=== PATIENT | female | born 1935 | race Caucasian/White ===

== ENCOUNTER 2017-02-18 11:32 | Emergency (ER) | payer MEDICARE, BC ==
[2017-02-18] MEDS ORDERED: Sodium Chloride 0.9% 1,000 ML IV ONE (13:02)
--- NOTE | 2017-02-18 13:12 | EDM.PDOC ---
ED HPI GENERAL MEDICAL PROBLEM - General Chief Complaint: Abdominal Pain Stated Complaint: UPPER ABDOMINAL PAIN Time Seen by Provider: 02/18/17 12:00 Source of Information: Reports: Patient History Limitations: Reports: No Limitations - History of Present Illness INITIAL COMMENTS - FREE TEXT/NARRATIVE: 81-year-old female who is been having epigastric and abdominal pain for the last couple of months. She seemed to respond to Prilosec but stopped taking it, and despite restarting it a week ago she continues to have discomfort. This morning it was very uncomfortable when she woke up so came in to get an opinion because she is starting to worry she has cancer or something more serious. No fevers or chills, she's had a 10 pound weight loss over the last several months and she's had marked increase in anxiety. No dark stools. Onset: Unknown/Unsure (Symptoms of been waxing and waning for several months) Location: Reports: Abdomen Quality: Reports: Ache, Burning Severity: Moderate Associated Symptoms: Reports: Other (Weight loss) epigastric Pain Score (Numeric/FACES): 5 - Related Data Allergies Allergy/AdvReac Type Severity Reaction Status Date / Time No Known Allergies Allergy Verified 02/18/17 11:51 Home Meds: Home Meds Losartan [Cozaar] 50 mg PO BEDTIME 02/18/17 [History] Omeprazole [Omeprazole] 40 mg PO DAILY 02/18/17 [History] Sertraline HCl [Sertraline HCl] 50 mg PO DAILY 02/18/17 [History] Triamterene/Hydrochlorothiazid [Triamterene-HCTZ 37.5-25 MG] 1 cap PO DAILY [History] Past Medical History HEENT History: Reports: Impaired Vision Cardiovascular History: Reports: Hypertension Gastrointestinal History: Reports: GERD 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: Musculoskeletal History: Reports: Back Pain, Chronic Psychiatric History: Reports: Anxiety, Depression Endocrine/Metabolic History: Reports: Diabetes, Type II Oncologic (Cancer) History: Reports: Basal Cell Carcinoma Dermatologic History: Reports: Other (See Below) Other Dermatologic History: basal cell carcinoma - Infectious Disease History Infectious Disease History: Reports: Chicken Pox, Shingles Social & Family History - Tobacco Use Smoking Status *Q: Never Smoker - Caffeine Use Caffeine Use: Reports: Coffee - Recreational Drug Use Recreational Drug Use: No ED ROS GENERAL - Review of Systems Review Of Systems: See Below Constitutional: Denies: Fever, Chills, Malaise HEENT: Reports: No Symptoms Respiratory: Denies: Shortness of Breath, Cough Cardiovascular: Denies: Chest Pain GI/Abdominal: Reports: Abdominal Pain. Denies: Nausea, Vomiting : Reports: No Symptoms Musculoskeletal: Reports: No Symptoms Skin: Reports: No Symptoms Neurological: Reports: No Symptoms Psychiatric: Reports: Anxiety ED EXAM, GI/ABD - Physical Exam Exam: See Below Exam Limited By: No Limitations General Appearance: Alert, No Apparent Distress Eyes: Bilateral: Normal Appearance (No jaundice) Respiratory/Chest: No Respiratory Distress, Lungs Clear Cardiovascular: Regular Rate, Rhythm GI/Abdominal Exam: Soft, Tender (Patient does have tenderness to palpation in the epigastric area into the left upper quadrant but no guarding) Neurological: Alert, Oriented Psychiatric: Normal Mood, Anxious Skin Exam: Warm, Dry Course - Vital Signs Last Recorded V/S: Last Vital Signs Temp 97.6 F 02/18/17 11:54 Pulse 91 02/18/17 14:19 Resp 18 02/18/17 14:19 BP 212/95 H 02/18/17 14:19 Pulse Ox 96 02/18/17 14:19 - Orders/Labs/Meds Labs: Laboratory Tests 02/18/17 02/18/17 Range/Units 12:28 12:28 WBC 7.3 (4.5-11.0) K/uL RBC 4.80 (3.30-5.50) M/uL Hgb 15.2 H (12.0-15.0) g/dL Hct 43.7 (36.0-48.0) % MCV 91 (80-98) fL MCH 32 H (27-31) pg MCHC 35 (32-36) % Plt Count 304 (150-400) K/uL Neut % (Auto) 55 (36-66) % Lymph % (Auto) 34 (24-44) % [place] % (Auto) 9 H (2-6) % Eos % (Auto) 2 (2-4) % Baso % (Auto) 0 (0-1) % Sodium 140 (140-148) mmol/L Potassium 3.7 (3.6-5.2) mmol/L Chloride 100 (100-108) mmol/L Carbon Dioxide 32 (21-32) mmol/L Anion Gap 8.1 (5.0-14.0) mmol/L BUN 20 H (7-18) mg/dL Creatinine 1.1 H (0.6-1.0) mg/dL Est Cr Clr Drug Dosing 32.62 mL/min Estimated GFR (MDRD) 48 L (>60) Glucose 106 (74-106) mg/dL Calcium 9.2 (8.5-10.1) mg/dL Total Bilirubin 0.3 (0.2-1.0) mg/dL AST 23 (15-37) U/L ALT 41 (12-78) U/L Alkaline Phosphatase 27 L (46-116) U/L Total Protein 8.3 H (6.4-8.2) g/dL Albumin 3.6 (3.4-5.0) g/dL Globulin 4.7 H (2.3-3.5) g/dL Albumin/Globulin Ratio 0.8 L (1.2-2.2) Amylase 94 (25-115) U/L Lipase 232 (73-393) U/L Meds: Medications Discontinued Medications Generic Name Dose Route Start Last Admin Trade Name Freq PRN Reason Stop Dose Admin Al Hydroxide/Mg Hydroxide 15 0 ml 02/18/17 14:48 02/18/17 15:00 ml/ Lidocaine HCl 15 ml PO 02/18/17 14:49 30 ml ONETIME ONE Administration Sodium Chloride 1,000 mls @ 1,000 mls/hr 02/18/17 13:02 02/18/17 13:25 Normal Saline IV 02/18/17 14:01 1,000 mls/hr .BOLUS ONE Administration Sodium Chloride 100 mls @ 3.5 mls/sec 02/18/17 13:30 02/18/17 13:51 Normal Saline IV 02/18/17 13:31 3 mls/sec ASDIRECTED ARTIE Administration Iopamidol 100 ml 02/18/17 13:17 02/18/17 13:50 Isovue-300 (61%) IV 02/19/17 13:18 90 ml . DIRECTED PRN Administration RADIOLOGY EXAM - Re-Assessments/Exams Free Text/Narrative Re-Assessment/Exam: 02/18/17 13:16 A CBC CMP amylase and lipase were obtained. Intentions are to get a CT of the abdomen with IV enhancement. 02/18/17 15:05 Labs were all reassuring. A CT with IV contrast showed a very large gallstone but no surrounding inflammatory changes. There was also some mild thickening of the esophagus but no hiatal hernia. Discussed these findings with the patient and then gave her a GI cocktail to see if symptoms would improve. 02/18/17 15:15 GI cocktail actually provided quite a bit of relief after 10-15 minutes. She is going to continue on her prescription proton pump inhibitor, and discuss a possible EGD in the near future with her primary provider. Departure - Departure Time of Disposition: 15:26 Disposition: Home, Self-Care 01 Condition: Good Clinical Impression: Esophagitis, reflux - Discharge Information Instructions: Gastroesophageal Reflux Disease, Adult Referrals: Zachary Hines MD [Primary Care Provider] - Forms: ED Department Discharge Care Plan Goals: Continue with your antacid medication as prescribed, consider a bland diet for the next few days and increase diet as tolerated. Discuss possibly setting up an EGD with your primary provider in the near future.
[2017-02-18] MEDS ORDERED: Iopamidol 612 MG/ML 100 ML Bottle IV PRN (13:17)
[2017-02-18] MEDS: Sodium Chloride 0.9% 100 ML IV SCH ×2 (13:50→13:51)
[2017-02-18 14:24] VITALS: BP 212/95
--- NOTE | 2017-02-18 14:41 | CT ---
Abdomen Pelvis w Cont INDICATION: persistant epigastric pain, weight loss TECHNIQUE: CT images of the abdomen and pelvis performed. Coronal reformatted images obtained. IV contrast only DLP: 491 mGycm COMPARISON: None FINDINGS: Mild thickening of the esophagus at the GE junction could represent mild esophagitis. No significant hiatal hernia. 2.5 cm gallstone. Smaller gallstones. No gallbladder wall thickening or p ericholecystic induration or fluid. No biliary distention. Pancreas unremarkable. Liver and spleen un remarkable. Adrenal glands clear. No renal calculi or hydronephrosis. Tiny cyst lower pole right kidn ey. Ureters and urinary bladder are clear. No signs of bowel obstruction. Appendix not visualized but no CT signs of acute appendicitis. Abdominal aorta normal caliber. No adenopathy. No ascites or free air. IMPRESSION: 1. Cholelithiasis with a large 2.5 cm gallstone but no CT signs of acute cholecystitis. 2. Correlate for esophagitis. Discussed with Dr. Tony Courtney immediately following the study.
[2017-02-18] MEDS ORDERED: Alum Hydrox/Mag Hydrox/Simeth 15 ML, Lidocaine 2% 15 ML PO ONE ×2 (14:48)
== END 2017-02-18 15:23 | disposition home or self-care (01) ==
LOC: JP.ED 11:32
DX: K21.0 Gastro-esophageal reflux disease with esophagitis (principal); I10 Essential (primary) hypertension; E11.9 Type 2 diabetes mellitus without complications; Z85.828 Personal history of other malignant neoplasm of skin; Z79.899 Other long term (current) drug therapy
CPT/HCPCS: 36415; 74177; 80053; 82150; 83690; 85025; 96360; 99284; A9270; J7030; J7040; Q9967; 99283

== ENCOUNTER 2020-06-14 08:25 | Inpatient (IN) | payer MEDICARE, BC ==
[2020-06-14] MEDS ORDERED: Acetaminophen 325 MG Tab PO PRN ×2 (14:23)
[2020-06-14] MEDS ORDERED: Docusate Sodium 100 MG Cap PO PRN (14:23)
[2020-06-14] MEDS ORDERED: Ondansetron 4 MG/2 ML SDV IV PRN (14:23)
[2020-06-14] MEDS ORDERED: Ondansetron 4 MG Tab.DIS PO PRN (14:23)
[2020-06-14] MEDS ORDERED: Albuterol/Ipratropium 3.0-0.5 MG/3 ML Neb Soln NEB PRN (14:23)
--- NOTE | 2020-06-14 15:47 | PCM.HP.2 ---
H&P History of Present Illness - General Date of Service: 06/14/20 Admit Problem/Dx: Admission Diagnosis/Problem Admission Diagnosis/Problem Weakness Source of Information: Patient History Limitations: Reports: No Limitations - History of Present Illness Initial Comments - Free Text/Narative: Ms. Maddison Jimenez is an 84 yo F admitted to the Medicine service at [facility] from clinic. She is admitted on 06/14/2020 for fever, hypoxia, and lethargy/malaise in the setting of a positive COVID 19 status. The patient was noted, in clinic, to have a presentation SpO2 of 87% on RA. This rebounded quickly to the mid 90's with starting 2 L NC oxygen. Despite this rapid improvement the ambulatory team was concerned enough to request admission to Medicine. The patient, upon arrival, was noted to be sitting at about 93% on RA. She was afebrile. She reported to the RN fevers at home of 101-103F. She has otherwise remained clinically stable since arriving to the unit. 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) - Related Data Allergies/Adverse Reactions: Allergies Allergy/AdvReac Type Severity Reaction Status Date / Time No Known Allergies Allergy Verified 02/18/17 11:51 Home Medications: Home Meds Losartan [Cozaar] 50 mg PO BEDTIME 02/18/17 [History] Omeprazole 40 mg PO DAILY 02/18/17 [History] Sertraline HCl 50 mg PO DAILY 02/18/17 [History] Triamterene/Hydrochlorothiazid [Triamterene-HCTZ 37.5-25 MG] 1 cap PO DAILY 02/18/17 [History] Past Medical History - Past Health History Medical/Surgical History: Denies Medical/Surgical History HEENT History: Reports: Impaired Vision Cardiovascular History: Reports: Heart Murmur, Hypertension Respiratory History: Reports: Other (See Below) Other Respiratory History: positive covid 19 Gastrointestinal History: Reports: GERD Other Gastrointestinal History: 06/13/20 - last BM [employer]ER History: Reports: Musculoskeletal History: Reports: Back Pain, Chronic Psychiatric History: Reports: Anxiety, Depression Endocrine/Metabolic History: Reports: Diabetes, Type II Oncologic (Cancer) History: Reports: Basal Cell Carcinoma Dermatologic History: Reports: Other (See Below) Other Dermatologic History: basal cell carcinoma - Infectious Disease History Infectious Disease History: Reports: Chicken Pox, Shingles - Past Surgical History Respiratory Surgical History: Reports: None Social & Family History - Family History Family Medical History: No Pertinent Family History - Tobacco Use Tobacco Use Status *Q: Never Tobacco User - Caffeine Use Caffeine Use: Reports: Coffee - Recreational Drug Use Recreational Drug Use: No H&P Review of Systems - Review of Systems: Review Of Systems: Comprehensive ROS is negative, except as noted in HPI. Exam - Exam Exam: See Below - Vital Signs Vital Signs: Last Vital Signs Temp 97.3 F 06/14/20 14:38 Pulse 52 L 06/14/20 14:38 Resp 16 06/14/20 14:38 BP 155/50 H 06/14/20 14:38 Pulse Ox 93 L 06/14/20 14:38 Weight: 139 lb 5.314 oz - Exam Quality Assessment: Supplemental Oxygen, DVT Prophylaxis General: Alert, Oriented, Cooperative. No: Mild Distress HEENT: PERRLA, EOMI Neck: Supple, Trachea Midline Lungs: Normal Respiratory Effort, Crackles (Bilateral in the bases) Cardiovascular: Regular Rate, Regular Rhythm, Normal S1, Normal S2, Systolic Murmur. No: Irregular Rhythm, Bradycardia, Tachycardia, Diastolic Murmur GI/Abdominal Exam: Normal Bowel Sounds, Soft, Non-Tender, No Organomegaly, No Distention Extremities: Normal Inspection, Normal Range of Motion, Non-Tender, No Pedal Edema, Normal Capillary Refill Peripheral Pulses: 4+: Posterior Tibial (L), Posterior Tibial (R), Dorsalis Pedis (L), Dorsalis Pedis (R) Skin: Warm, Dry, Intact Neurological: Cranial Nerves Intact, Reflexes Equal Bilateral Neuro Extensive - Mental Status: Alert, Oriented x3, Normal Mood/Affect, Normal Cognition, Memory Intact Neuro Extensive - Motor, Sensory, Reflexes: Normal Reflexes. No: Motor/Sensory Deficits DTR: 2+: Patella (L), Patella (R) Psychiatric: Alert, Normal Affect, Normal Mood. No: Labile Mood, Anxious, Depressed, Agitated, Suicidal Ideation, Homicidal Ideation Sepsis Event Note - Focused Exam Vital Signs: Vital Signs Temp Pulse Resp BP Pulse Ox 06/14/20 14:38 97.3 F 52 L 16 155/50 H 93 L Problem List Initiated/Reviewed/Updated: Yes Orders Last 24hrs: Active Orders 24 hr Category Date Time Status Patient Status [ADT] Routine ADT 06/14/20 14:23 Active Ambulate [RC] QID Care 06/14/20 14:23 Active Height and Weight [RC] DAILY Care 06/14/20 14:23 Active Intake and Output [RC] QSHIFT Care 06/14/20 14:30 Active Nurse Communication: Isolation [RC] ASDIRECTED Care 06/14/20 14:24 Active Oxygen Therapy [RC] PRN Care 06/14/20 14:23 Active Positioning, Patient [RC] ASDIRECTED Care 06/14/20 14:24 Active Pulse Oximetry [RC] CONTINUOUS Care 06/14/20 14:31 Active RT Aerosol Therapy [RC] ASDIRECTED Care 06/14/20 14:32 Active RT Incentive Spirometry [RC] ASDIRECTED Care 06/14/20 14:23 Active Up to Chair [RC] QID Care 06/14/20 14:23 Active VTE/DVT Education [RC] Per Unit Routine Care 06/14/20 14:23 Active Vital Signs [RC] Q4H Care 06/14/20 14:23 Active Consult to Case Management/Plastics Seasoner Operator [CONS] Cons 06/14/20 14:23 Active Routine Regular Diet [DIET] Diet 06/14/20 Dinner Active BASIC METABOLIC PANEL,BMP [CHEM] DAILY Lab 06/15/20 14:23 Ordered BASIC METABOLIC PANEL,BMP [CHEM] DAILY Lab 06/16/20 14:23 Ordered BASIC METABOLIC PANEL,BMP [CHEM] DAILY Lab 06/17/20 14:23 Ordered C-REACTIVE PROTEIN [CHEM] DAILY Lab 06/15/20 14:23 Ordered C-REACTIVE PROTEIN [CHEM] DAILY Lab 06/16/20 14:23 Ordered C-REACTIVE PROTEIN [CHEM] DAILY Lab 06/17/20 14:23 Ordered CBC WITH AUTO DIFF [HEME] DAILY Lab 06/15/20 14:23 Ordered CBC WITH AUTO DIFF [HEME] DAILY Lab 06/16/20 14:23 Ordered CBC WITH AUTO DIFF [HEME] DAILY Lab 06/17/20 14:23 Ordered CULTURE BLOOD [BC] Stat Lab 06/14/20 14:50 Received CULTURE RESPIRATORY + SMEAR [RM] Routine Lab 06/14/20 14:25 Ordered D-DIMER QUANTITATIVE [COAG] Stat Lab 06/14/20 14:50 Received FERRITIN [CHEM] DAILY Lab 06/15/20 14:23 Ordered FERRITIN [CHEM] DAILY Lab 06/16/20 14:23 Ordered FERRITIN [CHEM] DAILY Lab 06/17/20 14:23 Ordered HEPATIC FUNCTION PANEL,HFP [CHEM] DAILY Lab 06/15/20 14:30 Ordered HEPATIC FUNCTION PANEL,HFP [CHEM] DAILY Lab 06/16/20 14:30 Ordered HEPATIC FUNCTION PANEL,HFP [CHEM] DAILY Lab 06/17/20 14:30 Ordered HEPATIC FUNCTION PANEL,HFP [CHEM] DAILY Lab 06/18/20 14:30 Ordered HEPATIC FUNCTION PANEL,HFP [CHEM] Stat Lab 06/14/20 14:50 Received INFLUENZA A+B AG SCREEN [RM] Stat Lab 06/14/20 14:23 Ordered INR,PT,PROTHROMBIN TIME [COAG] Routine Lab 06/14/20 14:50 Received LACTATE DEHYDROGENASE,LDH [CHEM] Stat Lab 06/14/20 14:50 Received LACTIC ACID [CHEM] Stat Lab 06/14/20 14:50 Received PROCALCITONIN [CHEM] DAILY Lab 06/15/20 14:23 Ordered PROCALCITONIN [CHEM] DAILY Lab 06/16/20 14:23 Ordered PROCALCITONIN [CHEM] DAILY Lab 06/17/20 14:23 Ordered STREP SCRN A RAPID W CULT CONF [RM] Routine Lab 06/14/20 14:23 Ordered Acetaminophen [TylenoL] Med 06/14/20 14:23 Active 650 mg PO Q4H PRN Acetaminophen [TylenoL] Med 06/14/20 14:23 Active 650 mg PO Q4H PRN Albuterol/Ipratropium [DuoNeb 3.0-0.5 MG/3 ML] Med 06/14/20 14:23 Active 3 ml NEB QID PRN Docusate Sodium [Colace] Med 06/14/20 14:23 Active 100 mg PO BID PRN HCTZ/Triamterene [Maxzide 25-37.5 MG] Med 06/15/20 09:00 Active 1 each PO DAILY Heparin Sodium Med 06/14/20 16:00 Active 5,000 units SUBCUT Q8H Losartan [Cozaar] Med 06/14/20 21:00 Active 50 mg PO BEDTIME Ondansetron [Zofran ODT] Med 06/14/20 14:23 Active 4 mg PO Q6H PRN Ondansetron [Zofran] Med 06/14/20 14:23 Active 4 mg IV Q6H PRN Pantoprazole [ProTONIX] Med 06/15/20 07:30 Active 40 mg PO ACBREAKFAST Remdesivir 100 mg Med 06/15/20 14:00 Active Sodium Chloride 0.9% [Normal Saline] 100 ml IV Q24H Remdesivir 200 mg Med 06/14/20 16:00 Active Sodium Chloride 0.9% [Normal Saline] 250 ml IV ONETIME Sertraline [Zoloft] Med 06/15/20 09:00 Active 50 mg PO DAILY dexAMETHasone [Decadron] Med 06/14/20 15:00 Active 6 mg IVPUSH DAILY Isolation [COMM] Routine Oth 06/14/20 14:28 Ordered Isolation [COMM] Stat Oth 06/14/20 14:23 Ordered RT Acapella [RESPCARE] Routine Oth 06/14/20 14:23 Active Medication Orders Acetaminophen (Tylenol) 650 mg PO Q4H PRN PRN Reason: Fever Greater Than 101 Acetaminophen (Tylenol) 650 mg PO Q4H PRN PRN Reason: Pain (Mild 1-3)/fever Albuterol/Ipratropium (Duoneb 3.0-0.5 Mg/3 Ml) 3 ml NEB QID PRN PRN Reason: Shortness Of Breath/wheezing Dexamethasone (Decadron) 6 mg IVPUSH DAILY [facility] Stop: 06/23/20 09:01 Docusate Sodium (Colace) 100 mg PO BID PRN PRN Reason: Constipation Heparin Sodium (Porcine) (Heparin Sodium) 5,000 units SUBCUT Q8H [facility] Remdesivir 200 mg/ Sodium (Chloride) 250 mls @ 250 mls/hr IV ONETIME ONE Stop: 06/14/20 16:59 Remdesivir 100 mg/ Sodium (Chloride) 100 mls @ 100 mls/hr IV Q24H [facility] Stop: 06/18/20 14:59 Losartan Potassium (Cozaar) 50 mg PO BEDTIME [facility] Ondansetron HCl (Zofran Odt) 4 mg PO Q6H PRN PRN Reason: Nausea able to take PO Ondansetron HCl (Zofran) 4 mg IV Q6H PRN PRN Reason: Nausea/Vomiting Pantoprazole Sodium (Protonix) 40 mg PO ACBREAKFAST ARTIE Sertraline HCl (Zoloft) 50 mg PO DAILY ARTIE Triamterene/Hydrochlorothiazide (Maxzide 25-37.5 Mg) 1 each PO DAILY ARTIE Assessment/Plan Comment:: HEENT No active issues at present No trauma Cardiovascular Patient stable, no prior CV disease Respiratory Patient positive with COVID 19 and has clinical symptoms of bilateral PNA XR was not showing this on initial pass but it is clearly noted on examination. Patient is presently afebrile and stable. She is not requiring supplemental oxygen presently. There is some question of whether this patient could have potentially gotten monoclonal antibody treatment in the field in lieu of admission to the hospital as her clinical status is generally fairly stable. By the time we were able to consider this the patient had already arrived for management. - Start remdesivir - 200 mg IV loading dose today - 100 mg IV q day x 4 days starting on 06/15 - Start dexamethasone 6 mg IV q day starting today - SUpplemental oxygen as needed to keep SpO2 between 90-96% - Close observation of clinical status - Patient is FULL CODE and consents to intubation if needed - Routine surveillance and labs for secondary CAP Gastrointestinal - No issues, TRIAL JUDGE meds (omeprazole) Infectious Disease - As above Endocrine Diet controlled Type II DM - Resume carbohydrate controlled diet - Daily glucose - Given starting dexamethasone may need to add SSI, Glucose monitoring Renal/Fluids/Electrolytes No issues Replace lytes as needed Neuromusculoskeletal Consider PT/OT if needed DVT PPX: Heparin Disposition: Anticipate D/C to home CODE STATUS: FULL CODE - Mortality Measure Prognosis:: Good
[2020-06-14] MEDS ORDERED: REMDESIVIR 200 MG in Sodium Chloride 0.9% 250 ML IV ONE (16:00)
[2020-06-14] MEDS: Heparin Sodium 5,000 Units/ML Vial SUBCUT SCH ×2 (16:51→23:35)
[2020-06-14] MEDS: Dexamethasone 4 MG/ML SDV IVPUSH SCH (17:51)
[2020-06-14] MEDS: LOSARTAN 100 MG PO SCH (20:15)
[2020-06-14] MEDS ORDERED: Losartan 50 MG Tab PO SCH (21:00)
[2020-06-15] MEDS ORDERED: Sertraline 50 MG Tab PO SCH (09:00)
[2020-06-15] MEDS: Pantoprazole 40 MG Tab.CR PO SCH (09:09)
[2020-06-15] MEDS: Dexamethasone 4 MG/ML SDV IVPUSH SCH (09:10)
[2020-06-15] MEDS: Heparin Sodium 5,000 Units/ML Vial SUBCUT SCH ×3 (09:10→23:21)
[2020-06-15] MEDS: HYDROCHLOROTHIAZIDE PO SCH (09:11)
[2020-06-15] MEDS: TRIAMTERENE PO SCH (09:11)
[2020-06-15] MEDS: AMLODIPINE 10 MG PO SCH (09:12)
--- NOTE | 2020-06-15 12:57 | PCM.PN ---
- General Info Date of Service: 06/15/20 Admission Dx/Problem (Free Text): Admission Diagnosis/Problem Admission Diagnosis/Problem Weakness Subjective Update: Patient is now on 2 L NC oxygen. Tolerating remdesivir and dexamethasone well. Doing well but is a little apprehensive about her diagnosis. Functional Status: Reports: Pain Controlled, Tolerating Diet - Review of Systems General: Reports: No Symptoms HEENT: Reports: No Symptoms Pulmonary: Reports: Shortness of Breath, Cough Cardiovascular: Reports: No Symptoms Gastrointestinal: Reports: No Symptoms Musculoskeletal: Reports: No Symptoms - Patient Data Vitals - Most Recent: Last Vital Signs Temp 97.7 F 06/15/20 11:47 Pulse 62 06/15/20 11:47 Resp 14 06/15/20 11:47 BP 127/58 L 06/15/20 11:47 Pulse Ox 94 L 06/15/20 11:47 Weight - Most Recent: 140 lb 14.006 oz I&O - Last 24 Hours: Intake & Output 06/14/20 06/15/20 06/15/20 22:59 06:59 14:59 Intake Total 490 Balance 490 Lab Results Last 24 Hours: Laboratory Results - last 24 hr 06/14/20 06/14/20 06/14/20 Range/Units 14:50 14:50 14:50 WBC (4.5-11.0) K/uL RBC (3.30-5.50) M/uL Hgb (12.0-15.0) g/dL Hct (36.0-48.0) % MCV (80-98) fL MCH (27-31) pg MCHC (32-36) % Plt Count (150-400) K/uL Neut % (Auto) (36-66) % Lymph % (Auto) (24-44) % Gosper % (Auto) (2-6) % Eos % (Auto) (2-4) % Baso % (Auto) (0-1) % PT (9.5-12.0) sec INR (0.80-1.20) D-Dimer, Quantitative 1305.21 H (0.0-500.0) ng/mL Sodium (140-148) mmol/L Potassium (3.6-5.2) mmol/L Chloride (100-108) mmol/L Carbon Dioxide (21-32) mmol/L Anion Gap (5.0-14.0) mmol/L BUN (7-18) mg/dL Creatinine (0.6-1.0) mg/dL Est Cr Clr Drug Dosing mL/min Estimated GFR (MDRD) (>60) Glucose (74-106) mg/dL Lactic Acid 1.2 (0.4-2.0) mmol/L Calcium (8.5-10.1) mg/dL Ferritin (8-388) ng/ml Total Bilirubin (0.2-1.0) mg/dL Direct Bilirubin (0.0-0.2) mg/dL Indirect Bilirubin AST (15-37) U/L ALT (12-78) U/L Alkaline Phosphatase (46-116) U/L Lactate Dehydrogenase 381 H (82-234) U/L C-Reactive Protein (0.0-0.3) mg/dL Total Protein (6.4-8.2) g/dL Albumin (3.4-5.0) g/dL Globulin (2.3-3.5) g/dL Albumin/Globulin Ratio (1.2-2.2) Procalcitonin ng/mL 06/14/20 06/14/20 06/15/20 Range/Units 14:50 14:50 05:56 WBC (4.5-11.0) K/uL RBC (3.30-5.50) M/uL Hgb (12.0-15.0) g/dL Hct (36.0-48.0) % MCV (80-98) fL MCH (27-31) pg MCHC (32-36) % Plt Count (150-400) K/uL Neut % (Auto) (36-66) % Lymph % (Auto) (24-44) % Gosper % (Auto) (2-6) % Eos % (Auto) (2-4) % Baso % (Auto) (0-1) % PT 10.7 (9.5-12.0) sec INR 0.98 (0.80-1.20) D-Dimer, Quantitative (0.0-500.0) ng/mL Sodium 135 L (140-148) mmol/L Potassium 4.4 (3.6-5.2) mmol/L Chloride 100 (100-108) mmol/L Carbon Dioxide 24 (21-32) mmol/L Anion Gap 15.4 H (5.0-14.0) mmol/L BUN 41 H D (7-18) mg/dL Creatinine 1.2 H (0.6-1.0) mg/dL Est Cr Clr Drug Dosing 28.35 mL/min Estimated GFR (MDRD) 43 L (>60) Glucose 118 H (74-106) mg/dL Lactic Acid (0.4-2.0) mmol/L Calcium 8.9 (8.5-10.1) mg/dL Ferritin 638 H (8-388) ng/ml Total Bilirubin 0.3 (0.2-1.0) mg/dL Direct Bilirubin 0.13 (0.0-0.2) mg/dL Indirect Bilirubin 0.17 AST 50 H D (15-37) U/L ALT 45 (12-78) U/L Alkaline Phosphatase 28 L (46-116) U/L Lactate Dehydrogenase (82-234) U/L C-Reactive Protein 6.51 H (0.0-0.3) mg/dL Total Protein 7.9 (6.4-8.2) g/dL Albumin 3.2 L (3.4-5.0) g/dL Globulin 4.7 H (2.3-3.5) g/dL Albumin/Globulin Ratio 0.7 L (1.2-2.2) Procalcitonin ng/mL 06/15/20 06/15/20 06/15/20 Range/Units 05:56 05:56 05:56 WBC 3.1 L (4.5-11.0) K/uL RBC 3.98 (3.30-5.50) M/uL Hgb 12.8 D (12.0-15.0) g/dL Hct 37.4 (36.0-48.0) % MCV 94 (80-98) fL MCH 32 H (27-31) pg MCHC 34 (32-36) % Plt Count 296 (150-400) K/uL Neut % (Auto) 57 (36-66) % Lymph % (Auto) 31 (24-44) % Gosper % (Auto) 12 H (2-6) % Eos % (Auto) 0 L (2-4) % Baso % (Auto) 0 (0-1) % PT (9.5-12.0) sec INR (0.80-1.20) D-Dimer, Quantitative (0.0-500.0) ng/mL Sodium (140-148) mmol/L Potassium (3.6-5.2) mmol/L Chloride (100-108) mmol/L Carbon Dioxide (21-32) mmol/L Anion Gap (5.0-14.0) mmol/L BUN (7-18) mg/dL Creatinine (0.6-1.0) mg/dL Est Cr Clr Drug Dosing mL/min Estimated GFR (MDRD) (>60) Glucose (74-106) mg/dL Lactic Acid (0.4-2.0) mmol/L Calcium (8.5-10.1) mg/dL Ferritin (8-388) ng/ml Total Bilirubin 0.3 (0.2-1.0) mg/dL Direct Bilirubin 0.08 (0.0-0.2) mg/dL Indirect Bilirubin TNP AST 41 H (15-37) U/L ALT 37 (12-78) U/L Alkaline Phosphatase 24 L (46-116) U/L Lactate Dehydrogenase (82-234) U/L C-Reactive Protein (0.0-0.3) mg/dL Total Protein 7.0 (6.4-8.2) g/dL Albumin 2.7 L (3.4-5.0) g/dL Globulin 4.3 H (2.3-3.5) g/dL Albumin/Globulin Ratio 0.6 L (1.2-2.2) Procalcitonin 0.15 ng/mL Al[facility]za Results Last 24 Hours: Microbiology 06/14/20 20:30 Influenza Type A Antigen Screen - Final Nasopharyngeal Swab - Nare, Unspecified NEGATIVE INFLUENZA A VIRUS AG REFERENCE RANGE: NEGATIVE Influenza Type B Antigen Screen - Final NEGATIVE INFLUENZA B VIRUS AG REFERENCE RANGE: NEGATIVE 06/14/20 14:23 Group A Streptococcus Rapid Screen - Final Throat NEGATIVE STREP A SCREEN REFERENCE RANGE: NEGATIVE Med Orders - Current: Current Medications Acetaminophen (Tylenol) 650 mg PO Q4H PRN PRN Reason: Fever Greater Than 101 Acetaminophen (Tylenol) 650 mg PO Q4H PRN PRN Reason: Pain (Mild 1-3)/fever Albuterol/Ipratropium (Duoneb 3.0-0.5 Mg/3 Ml) 3 ml NEB QID PRN PRN Reason: Shortness Of Breath/wheezing Dexamethasone (Decadron) 6 mg IVPUSH DAILY [facility] Stop: 06/23/20 09:01 Last Admin: 06/15/20 09:10 Dose: 6 mg Documented by: Docusate Sodium (Colace) 100 mg PO BID PRN PRN Reason: Constipation Heparin Sodium (Porcine) (Heparin Sodium) 5,000 units SUBCUT Q8H [facility] Last Admin: 06/15/20 09:10 Dose: Not Given Documented by: Remdesivir 100 mg/ Sodium (Chloride) 100 mls @ 100 mls/hr IV Q24H [facility] Stop: 06/18/20 14:59 Ondansetron HCl (Zofran Odt) 4 mg PO Q6H PRN PRN Reason: Nausea able to take PO Ondansetron HCl (Zofran) 4 mg IV Q6H PRN PRN Reason: Nausea/Vomiting Pantoprazole Sodium (Protonix) 40 mg PO ACBREAKFAST [facility] Last Admin: 06/15/20 09:09 Dose: 40 mg Documented by: Losartan 100mg *Pom* 1 each PO BEDTIME [facility] Last Admin: 06/14/20 20:15 Dose: 1 each Documented by: Amlodipine 10mg *Pom (*) 1 each PO DAILY [facility] Last Admin: 06/15/20 09:12 Dose: 1 each Documented by: Triamterene/Hydrochlorothiazide (Maxzide 25-37.5 Mg) 1 each PO DAILY [facility] Last Admin: 06/15/20 09:11 Dose: 1 each Documented by: Discontinued Medications Remdesivir 200 mg/ Sodium (Chloride) 250 mls @ 250 mls/hr IV ONETIME ONE Stop: 06/14/20 16:59 Last Admin: 06/14/20 17:46 Dose: 250 mls/hr Documented by: Losartan Potassium (Cozaar) 50 mg PO BEDTIME [facility] Sertraline HCl (Zoloft) 50 mg PO DAILY [facility] - Exam Quality Assessment: Supplemental Oxygen, DVT Prophylaxis General: Alert, Oriented, Cooperative, No Acute Distress HEENT: Pupils Equal, EOMI Lungs: Crackles (bilateral bases, slight climb up into the upper bases) Cardiovascular: Regular Rate, Regular Rhythm Sepsis Event Note - Evaluation Sepsis Screening Result: No Definite Risk - Focused Exam Vital Signs: Vital Signs Temp Pulse Resp BP Pulse Ox 06/15/20 11:47 97.7 F 62 14 127/58 L 94 L 06/15/20 07:56 97.0 F 66 18 112/51 L 95 06/15/20 07:44 95 06/15/20 03:03 92 L 06/15/20 03:02 97.1 F 60 16 122/50 L 87 L 06/15/20 01:50 92 L - Problem List Review Problem List Initiated/Reviewed/Updated: Yes - My Orders Last 24 Hours: My Active Orders 06/14/20 14:23 Patient Status [ADT] Routine Ambulate [RC] QID Height and Weight [RC] DAILY Oxygen Therapy [RC] PRN RT Incentive Spirometry [RC] ASDIRECTED Up to Chair [RC] QID VTE/DVT Education [RC] Per Unit Routine Vital Signs [RC] Q4H Consult to Case Management/Telephone Order Clerk [CONS] Routine CULTURE STREP A CONFIRMATION [RM] Routine STREP SCRN A RAPID W CULT CONF [RM] Routine Acetaminophen [TylenoL] 650 mg PO Q4H PRN Acetaminophen [TylenoL] 650 mg PO Q4H PRN Albuterol/Ipratropium [DuoNeb 3.0-0.5 MG/3 ML] 3 ml NEB QID PRN Docusate Sodium [Colace] 100 mg PO BID PRN Ondansetron [Zofran ODT] 4 mg PO Q6H PRN Ondansetron [Zofran] 4 mg IV Q6H PRN Isolation [COMM] Stat RT Acapella [RESPCARE] Routine 06/14/20 14:24 Positioning, Patient [RC] ASDIRECTED 06/14/20 14:25 CULTURE RESPIRATORY + SMEAR [RM] Routine 06/14/20 14:28 Isolation [COMM] Routine 06/14/20 14:30 Intake and Output [RC] QSHIFT 06/14/20 14:31 Pulse Oximetry [RC] CONTINUOUS 06/14/20 14:32 RT Aerosol Therapy [RC] ASDIRECTED 06/14/20 14:50 CULTURE BLOOD [BC] Stat 06/14/20 15:00 CULTURE BLOOD [BC] Routine dexAMETHasone [Decadron] 6 mg IVPUSH DAILY 06/14/20 16:00 Heparin Sodium 5,000 units SUBCUT Q8H 06/14/20 Dinner Consistent Carbohydrate Diet [DIET] 06/14/20 21:00 Patient's Own Medication [Ptom] 1 each PO BEDTIME 06/15/20 01:03 Code Status [Resuscitation Status] Routine 06/15/20 07:30 Pantoprazole [ProTONIX] 40 mg PO ACBREAKFAST 06/15/20 09:00 HCTZ/Triamterene [Maxzide 25-37.5 MG] 1 each PO DAILY Patient's Own Medication [Ptom] 1 each PO DAILY 06/15/20 14:00 Remdesivir 100 mg Sodium Chloride 0.9% [Normal Saline] 100 ml IV Q24H 06/16/20 05:11 BASIC METABOLIC PANEL,BMP [CHEM] DAILY C-REACTIVE PROTEIN [CHEM] DAILY CBC WITH AUTO DIFF [HEME] DAILY FERRITIN [CHEM] DAILY PROCALCITONIN [CHEM] DAILY 06/16/20 23:54 HEPATIC FUNCTION PANEL,HFP [CHEM] DAILY 06/17/20 05:11 BASIC METABOLIC PANEL,BMP [CHEM] DAILY C-REACTIVE PROTEIN [CHEM] DAILY CBC WITH AUTO DIFF [HEME] DAILY FERRITIN [CHEM] DAILY PROCALCITONIN [CHEM] DAILY 06/17/20 23:54 HEPATIC FUNCTION PANEL,HFP [CHEM] DAILY - Plan Plan:: HEENT No active issues at present No trauma Cardiovascular Patient stable, no prior CV disease Respiratory Patient positive with COVID 19 and has clinical symptoms of bilateral PNA XR was not showing this on initial pass but it is clearly noted on examination. Patient is presently afebrile and stable. She is not requiring supplemental oxygen presently. There is some question of whether this patient could have potentially gotten monoclonal antibody treatment in the field in lieu of admission to the hospital as her clinical status is generally fairly stable. By the time we were able to consider this the patient had already arrived for management. - Continue remdesivir - 200 mg IV loading dose today - 100 mg IV q day x 4 days starting on 06/15 - Continue dexamethasone 6 mg IV q day starting today - SUpplemental oxygen as needed to keep SpO2 between 90-96% - Now on 2 L as of 06/15 - Close observation of clinical status - Patient is FULL CODE and consents to intubation if needed - Routine surveillance and labs for secondary CAP Gastrointestinal - No issues, [employer] meds (omeprazole) Infectious Disease - As above Endocrine Diet controlled Type II DM - Resume carbohydrate controlled diet - Daily glucose - Given starting dexamethasone may need to add SSI, Glucose monitoring Renal/Fluids/Electrolytes No issues Replace lytes as needed Neuromusculoskeletal Consider PT/OT if needed DVT PPX: Heparin Disposition: Anticipate D/C to home CODE STATUS: FULL CODE
[2020-06-15] MEDS: REMDESIVIR 100 MG in Sodium Chloride 0.9% 100 ML IV SCH (14:57)
[2020-06-15] MEDS: LOSARTAN 100 MG PO SCH (20:14)
[2020-06-16] MEDS: Pantoprazole 40 MG Tab.CR PO SCH (08:28)
[2020-06-16] MEDS: Heparin Sodium 5,000 Units/ML Vial SUBCUT SCH (08:28)
[2020-06-16] MEDS: Dexamethasone 4 MG/ML SDV IVPUSH SCH (08:28)
[2020-06-16] MEDS: TRIAMTERENE PO SCH (08:29)
[2020-06-16] MEDS: AMLODIPINE 10 MG PO SCH (08:29)
[2020-06-16] MEDS: HYDROCHLOROTHIAZIDE PO SCH (08:29)
--- NOTE | 2020-06-16 12:28 | PCM.PN ---
- General Info Date of Service: 06/16/20 Subjective Update: There were no acute events overnight. Patient does continue to require 2 L of supplemental oxygen. She does not feel short of breath. Only has an occasional cough. No fevers. She does feel very weak and feels fatigued. She is able to walk to the bathroom and back. Appetite has been okay. CRP is a little better today. Tolerating treatment with steroids and remdesivir. Functional Status: Reports: Pain Controlled, Tolerating Diet - Review of Systems General: Reports: Weakness. Denies: Fever Pulmonary: Denies: Shortness of Breath - Patient Data Vitals - Most Recent: Last Vital Signs Temp 35.8 C L 06/16/20 11:13 Pulse 63 06/16/20 11:13 Resp 16 06/16/20 11:13 BP 134/61 06/16/20 11:13 Pulse Ox 92 L 06/16/20 11:13 Weight - Most Recent: 64.1 kg I&O - Last 24 Hours: Intake & Output 06/15/20 06/16/20 06/16/20 22:59 06:59 14:59 Intake Total 1480 350 Balance 1480 350 Lab Results Last 24 Hours: Laboratory Results - last 24 hr 06/16/20 06/16/20 06/16/20 Range/Units 06:12 06:12 06:12 WBC 6.4 (4.5-11.0) K/uL RBC 3.98 (3.30-5.50) M/uL Hgb 12.7 (12.0-15.0) g/dL Hct 37.6 (36.0-48.0) % MCV 95 (80-98) fL MCH 32 H (27-31) pg MCHC 34 (32-36) % Plt Count 328 (150-400) K/uL Neut % (Auto) 62 (36-66) % Lymph % (Auto) 26 (24-44) % Smith % (Auto) 11 H (2-6) % Eos % (Auto) 0 L (2-4) % Baso % (Auto) 1 (0-1) % Sodium 136 L (140-148) mmol/L Potassium 4.6 (3.6-5.2) mmol/L Chloride 103 (100-108) mmol/L Carbon Dioxide 24 (21-32) mmol/L Anion Gap 13.6 (5.0-14.0) mmol/L BUN 51 H (7-18) mg/dL Creatinine 1.2 H (0.6-1.0) mg/dL Est Cr Clr Drug Dosing 28.35 mL/min Estimated GFR (MDRD) 43 L (>60) Glucose 145 H (74-106) mg/dL Calcium 8.8 (8.5-10.1) mg/dL Ferritin 800 H (8-388) ng/ml Total Bilirubin 0.3 (0.2-1.0) mg/dL Direct Bilirubin 0.09 (0.0-0.2) mg/dL Indirect Bilirubin TNP AST 35 (15-37) U/L ALT 39 (12-78) U/L Alkaline Phosphatase 27 L (46-116) U/L C-Reactive Protein 4.40 H (0.0-0.3) mg/dL Total Protein 6.8 (6.4-8.2) g/dL Albumin 2.6 L (3.4-5.0) g/dL Globulin 4.2 H (2.3-3.5) g/dL Albumin/Globulin Ratio 0.6 L (1.2-2.2) Procalcitonin 0.07 ng/mL [facility] Results Last 24 Hours: Microbiology 06/14/20 14:23 Quick Strep Confirmation Culture - Preliminary Throat NO GROUP A STREP ISOLATED REFERENCE RANGE: NEGATIVE Group A Streptococcus Rapid Screen - Final NEGATIVE STREP A SCREEN REFERENCE RANGE: NEGATIVE 06/14/20 15:00 Aerobic Blood Culture - Preliminary Blood - Arm, Left NO GROWTH AFTER 1 DAY Anaerobic Blood Culture - Preliminary NO GROWTH AFTER 1 DAY 06/14/20 14:50 Aerobic Blood Culture - Preliminary Blood - Arm, Left NO GROWTH AFTER 1 DAY Anaerobic Blood Culture - Preliminary NO GROWTH AFTER 1 DAY Med Orders - Current: Current Medications Acetaminophen (Tylenol) 650 mg PO Q4H PRN PRN Reason: Fever Greater Than 101 Acetaminophen (Tylenol) 650 mg PO Q4H PRN PRN Reason: Pain (Mild 1-3)/fever Albuterol/Ipratropium (Duoneb 3.0-0.5 Mg/3 Ml) 3 ml NEB QID PRN PRN Reason: Shortness Of Breath/wheezing Amlodipine Besylate (Norvasc) 10 mg PO DAILY [facility] Dexamethasone (Decadron) 6 mg IVPUSH DAILY [facility] Stop: 06/23/20 09:01 Last Admin: 06/16/20 08:28 Dose: 6 mg Documented by: Docusate Sodium (Colace) 100 mg PO BID PRN PRN Reason: Constipation Heparin Sodium (Porcine) (Heparin Sodium) 5,000 units SUBCUT Q8H [facility] Last Admin: 06/16/20 08:28 Dose: Not Given Documented by: Remdesivir 100 mg/ Sodium (Chloride) 100 mls @ 100 mls/hr IV Q24H [facility] Stop: 06/18/20 14:59 Last Admin: 06/15/20 14:57 Dose: 100 mls/hr Documented by: Losartan Potassium (Cozaar) 100 mg PO BEDTIME [facility] Magnesium Hydroxide (Milk Of Magnesia) 30 ml PO BID PRN PRN Reason: Constipation Ondansetron HCl (Zofran Odt) 4 mg PO Q6H PRN PRN Reason: Nausea able to take PO Ondansetron HCl (Zofran) 4 mg IV Q6H PRN PRN Reason: Nausea/Vomiting Pantoprazole Sodium (Protonix) 40 mg PO ACBREAKFAST [facility] Last Admin: 06/16/20 08:28 Dose: 40 mg Documented by: Triamterene/Hydrochlorothiazide (Maxzide 25-37.5 Mg) 1 each PO DAILY [facility] Discontinued Medications Remdesivir 200 mg/ Sodium (Chloride) 250 mls @ 250 mls/hr IV ONETIME ONE Stop: 06/14/20 16:59 Last Admin: 06/14/20 17:46 Dose: 250 mls/hr Documented by: Losartan Potassium (Cozaar) 50 mg PO BEDTIME [facility] Losartan 100mg *Pom* 1 each PO BEDTIME [facility] Last Admin: 06/15/20 20:14 Dose: 1 each Documented by: Amlodipine 10mg *Pom (*) 1 each PO DAILY [facility] Last Admin: 06/16/20 08:29 Dose: 1 each Documented by: Sertraline HCl (Zoloft) 50 mg PO DAILY [facility] Triamterene/Hydrochlorothiazide (Maxzide 25-37.5 Mg) 1 each PO DAILY [facility] Last Admin: 06/16/20 08:29 Dose: 1 each Documented by: - Exam Quality Assessment: Supplemental Oxygen General: Alert, Oriented, Cooperative, No Acute Distress Lungs: Normal Respiratory Effort, Crackles (mild diffuse) Cardiovascular: Regular Rate, Regular Rhythm GI/Abdominal Exam: Soft, No Distention Extremities: No Pedal Edema. No: Increased Warmth Skin: Warm, Dry Psy/Mental Status: Alert, Normal Affect Sepsis Event Note - Evaluation Sepsis Screening Result: No Definite Risk - Focused Exam Vital Signs: Vital Signs Temp Pulse Resp BP Pulse Ox 06/16/20 11:13 35.8 C L 63 16 134/61 92 L 06/16/20 08:04 35.8 C L 72 18 130/55 L 93 L 06/16/20 07:12 97 06/16/20 05:10 35.3 C L 70 16 124/74 94 L 06/16/20 01:00 97 - Problem List Review Problem List Initiated/Reviewed/Updated: Yes - My Orders Last 24 Hours: My Active Orders 06/16/20 08:25 Admission Status [Patient Status] [ADT] Routine 06/17/20 05:00 COMPREHENSIVE METABOLIC PN,CMP [CHEM] Timed DD [D-DIMER QUANTITATIVE] [COAG] Timed - Plan Plan:: ASSESSMENT AND PLAN - COVID-19 pneumonia-complicated by acute respiratory failure with hypoxia. Onset of symptoms on June 09. Minimal supplemental oxygen requirement but this is persistent. Tolerating treatment so far. No fevers and vitals are stable. Weak and fatigued but overall doing fairly well. -Continued dexamethasone (day 3) -Continue remdesivir (day 3) -Supplement oxygen as needed -Maintain isolation precautions Essential hypertension-blood pressure well controlled. -Continue home medications Maintenance issues - - DVT prophylaxis -enoxaparin - GI prophylaxis -not indicated - Nutrition -regular Admission justification -patient was initially admitted to observation status. She now has acute respiratory failure secondary to her COVID-19 pneumonia. She will be transitioned to inpatient status for management of bilateral viral pneumonia with hypoxic respiratory failure. Disposition -I would anticipate discharge home after the hospital stay Eduar Maloney M.D.
[2020-06-16] MEDS: REMDESIVIR 100 MG in Sodium Chloride 0.9% 100 ML IV SCH (14:45)
[2020-06-16] MEDS: Enoxaparin 30 MG/0.3 ML Syringe SUBCUT SCH (20:33)
[2020-06-16] MEDS: LOSARTAN 100 MG PO SCH (20:33)
[2020-06-16] MEDS: Losartan 50 MG Tab PO SCH (20:35)
[2020-06-17] MEDS: Pantoprazole 40 MG Tab.CR PO SCH (08:10)
[2020-06-17] MEDS: Hydrochlorothiazide/Triamterene 25-37.5 Tab PO SCH (08:11)
[2020-06-17] MEDS: amLODIPine 5 MG Tab PO SCH (08:11)
[2020-06-17] MEDS: Dexamethasone 4 MG/ML SDV IVPUSH SCH (08:12)
--- NOTE | 2020-06-17 12:36 | PCM.PN ---
- General Info Date of Service: 06/17/20 Subjective Update: No acute events overnight. No fevers. Still weak and fatigued but otherwise doing okay. She does not feel particularly short of breath. She does continue to require 2 L of supplemental oxygen. CRP and D-dimer have improved. Appetite has been good. Functional Status: Reports: Pain Controlled, Tolerating Diet - Review of Systems General: Reports: Weakness, Fatigue - Patient Data Vitals - Most Recent: Last Vital Signs Temp 35.7 C L 06/17/20 10:39 Pulse 76 06/17/20 10:39 Resp 18 06/17/20 10:39 BP 133/51 L 06/17/20 10:39 Pulse Ox 92 L 06/17/20 10:39 Weight - Most Recent: 64.1 kg I&O - Last 24 Hours: Intake & Output 06/16/20 06/17/20 06/17/20 22:59 06:59 14:59 Intake Total 1760 540 Balance 1760 540 Lab Results Last 24 Hours: Laboratory Results - last 24 hr 06/17/20 06/17/20 Range/Units 04:00 04:00 D-Dimer, Quantitative 878.99 H (0.0-500.0) ng/mL Sodium 136 L (140-148) mmol/L Potassium 4.9 (3.6-5.2) mmol/L Chloride 104 (100-108) mmol/L Carbon Dioxide 23 (21-32) mmol/L Anion Gap 13.9 (5.0-14.0) mmol/L BUN 54 H (7-18) mg/dL Creatinine 1.1 H (0.6-1.0) mg/dL Est Cr Clr Drug Dosing 30.93 mL/min Estimated GFR (MDRD) 47 L (>60) Glucose 168 H (74-106) mg/dL Calcium 8.8 (8.5-10.1) mg/dL Total Bilirubin 0.3 (0.2-1.0) mg/dL AST 38 H (15-37) U/L ALT 52 (12-78) U/L Alkaline Phosphatase 23 L (46-116) U/L Total Protein 6.5 (6.4-8.2) g/dL Albumin 2.5 L (3.4-5.0) g/dL Globulin 4.0 H (2.3-3.5) g/dL Albumin/Globulin Ratio 0.6 L (1.2-2.2) Alireza Results Last 24 Hours: Microbiology 06/14/20 14:23 Quick Strep Confirmation Culture - Final Throat NO GROUP A STREP ISOLATED REFERENCE RANGE: NEGATIVE Group A Streptococcus Rapid Screen - Final NEGATIVE STREP A SCREEN REFERENCE RANGE: NEGATIVE 06/14/20 15:00 Aerobic Blood Culture - Preliminary Blood - Arm, Left NO GROWTH AFTER 2 DAYS Anaerobic Blood Culture - Preliminary NO GROWTH AFTER 2 DAYS 06/14/20 14:50 Aerobic Blood Culture - Preliminary Blood - Arm, Left NO GROWTH AFTER 2 DAYS Anaerobic Blood Culture - Preliminary NO GROWTH AFTER 2 DAYS Med Orders - Current: Current Medications Acetaminophen (Tylenol) 650 mg PO Q4H PRN PRN Reason: Fever Greater Than 101 Acetaminophen (Tylenol) 650 mg PO Q4H PRN PRN Reason: Pain (Mild 1-3)/fever Amlodipine Besylate (Norvasc) 10 mg PO DAILY [facility] Last Admin: 06/17/20 08:11 Dose: 10 mg Documented by: Dexamethasone (Decadron) 6 mg IVPUSH DAILY [facility] Stop: 06/23/20 09:01 Last Admin: 06/17/20 08:12 Dose: 6 mg Documented by: Docusate Sodium (Colace) 100 mg PO BID PRN PRN Reason: Constipation Enoxaparin Sodium (Lovenox) 30 mg SUBCUT Q24H [facility] Last Admin: 06/16/20 20:33 Dose: 30 mg Documented by: Remdesivir 100 mg/ Sodium (Chloride) 100 mls @ 100 mls/hr IV Q24H [facility] Stop: 06/18/20 14:59 Last Admin: 06/16/20 14:45 Dose: 100 mls/hr Documented by: Losartan Potassium (Cozaar) 100 mg PO BEDTIME [facility] Last Admin: 06/16/20 20:35 Dose: 100 mg Documented by: Magnesium Hydroxide (Milk Of Magnesia) 30 ml PO BID PRN PRN Reason: Constipation Non-Formulary Medication (Vit C/E/Zn/Coppr/Lutein/Zeaxan [Preservision Areds 2 Softgel]) 1 cap PO BID [facility] Ondansetron HCl (Zofran Odt) 4 mg PO Q6H PRN PRN Reason: Nausea able to take PO Ondansetron HCl (Zofran) 4 mg IV Q6H PRN PRN Reason: Nausea/Vomiting Pantoprazole Sodium (Protonix) 40 mg PO ACBREAKFAST [facility] Last Admin: 06/17/20 08:10 Dose: 40 mg Documented by: Triamterene/Hydrochlorothiazide (Maxzide 25-37.5 Mg) 1 each PO DAILY [facility] Last Admin: 06/17/20 08:11 Dose: 1 each Documented by: Discontinued Medications Albuterol/Ipratropium (Duoneb 3.0-0.5 Mg/3 Ml) 3 ml NEB QID PRN PRN Reason: Shortness Of Breath/wheezing Heparin Sodium (Porcine) (Heparin Sodium) 5,000 units SUBCUT Q8H [facility] Last Admin: 06/16/20 08:28 Dose: Not Given Documented by: Remdesivir 200 mg/ Sodium (Chloride) 250 mls @ 250 mls/hr IV ONETIME ONE Stop: 06/14/20 16:59 Last Admin: 06/14/20 17:46 Dose: 250 mls/hr Documented by: Losartan Potassium (Cozaar) 50 mg PO BEDTIME [facility] Losartan 100mg *Pom* 1 each PO BEDTIME [facility] Last Admin: 06/16/20 20:33 Dose: Not Given Documented by: Amlodipine 10mg *Pom (*) 1 each PO DAILY [facility] Last Admin: 06/16/20 08:29 Dose: 1 each Documented by: Sertraline HCl (Zoloft) 50 mg PO DAILY [facility] Triamterene/Hydrochlorothiazide (Maxzide 25-37.5 Mg) 1 each PO DAILY [facility] Last Admin: 06/16/20 08:29 Dose: 1 each Documented by: - Exam Quality Assessment: Supplemental Oxygen General: Alert, Oriented, Cooperative, No Acute Distress Lungs: Normal Respiratory Effort. No: Wheezing Cardiovascular: Regular Rhythm, Bradycardia GI/Abdominal Exam: Soft, No Distention Extremities: No Pedal Edema. No: Increased Warmth Skin: Warm, Dry Psy/Mental Status: Alert, Normal Affect Sepsis Event Note - Evaluation Sepsis Screening Result: No Definite Risk - Focused Exam Vital Signs: Vital Signs Temp Pulse Resp BP BP Pulse Ox 06/17/20 10:39 35.7 C L 76 18 133/51 L 92 L 06/17/20 08:11 116/50 L 06/17/20 07:00 35.0 C L 68 18 116/50 L 92 L 06/17/20 06:58 92 L 06/17/20 04:35 35 C L 74 16 123/54 L 94 L 06/17/20 01:00 98 - Problem List Review Problem List Initiated/Reviewed/Updated: Yes - My Orders Last 24 Hours: My Active Orders 06/16/20 21:00 Enoxaparin [Lovenox] 30 mg SUBCUT Q24H 06/17/20 21:00 Vit C/E/Zn/Coppr/Lutein/Zeaxan [Preservision Areds 2 Softgel] 1 cap PO BID 06/18/20 05:00 COMPREHENSIVE METABOLIC PN,CMP [CHEM] Timed - Plan Plan:: ASSESSMENT AND PLAN - COVID-19 pneumonia-complicated by acute respiratory failure with hypoxia. Onset of symptoms on June 09. Weak and fatigued. Still requiring oxygen but overall doing well. -Continued dexamethasone (day 4) -Continue remdesivir (day 4) -Supplement oxygen as needed -Maintain isolation precautions Essential hypertension-blood pressure well controlled. -Continue home medications Maintenance issues - - DVT prophylaxis -enoxaparin - GI prophylaxis -not indicated - Nutrition -regular Disposition -I would anticipate discharge home after the hospital stay Eduar Maloney M.D.
[2020-06-17] MEDS: REMDESIVIR 100 MG in Sodium Chloride 0.9% 100 ML IV SCH (14:03)
[2020-06-17] MEDS: Enoxaparin 30 MG/0.3 ML Syringe SUBCUT SCH (20:38)
[2020-06-17] MEDS: Multivitamins with Iron/Calcium/Folic Acid/Minerals Tab PO SCH (20:39)
[2020-06-17] MEDS: Losartan 50 MG Tab PO SCH (20:40)
[2020-06-17] MEDS ORDERED: Non-Formulary Medication 1 Each (Vit C/E/Zn/Coppr/Lutein/Zeaxan [Preservision Areds 2 Soft PO SCH (21:00)
[2020-06-18] MEDS: amLODIPine 5 MG Tab PO SCH (08:19)
[2020-06-18] MEDS: Dexamethasone 4 MG/ML SDV IVPUSH SCH (08:20)
[2020-06-18] MEDS: Pantoprazole 40 MG Tab.CR PO SCH (08:20)
[2020-06-18] MEDS: Hydrochlorothiazide/Triamterene 25-37.5 Tab PO SCH (08:20)
[2020-06-18] MEDS: Multivitamins with Iron/Calcium/Folic Acid/Minerals Tab PO SCH (08:20)
[2020-06-18] MEDS: [UNRECOGNIZED DRUG - OTHER] PO SCH ×2 (11:36→21:11)
--- NOTE | 2020-06-18 12:37 | PCM.PN ---
- General Info Date of Service: 06/18/20 Subjective Update: There were no acute events overnight. No fevers. She continues to be weak and feels fatigued but has otherwise been stable. She does not feel short of breath but does continue to require supplemental oxygen. She feels like she is very slowly getting better. Appetite has been good. Functional Status: Reports: Pain Controlled, Tolerating Diet - Review of Systems General: Reports: Weakness, Fatigue. Denies: Fever - Patient Data Vitals - Most Recent: Last Vital Signs Temp 35.7 C L 06/18/20 10:49 Pulse 73 06/18/20 10:49 Resp 18 06/18/20 10:49 BP 153/60 H 06/18/20 10:49 Pulse Ox 89 L 06/18/20 12:25 Weight - Most Recent: 62.5 kg I&O - Last 24 Hours: Intake & Output 06/17/20 06/18/20 06/18/20 22:59 06:59 14:59 Intake Total 200 Balance 200 Lab Results Last 24 Hours: Laboratory Results - last 24 hr 06/18/20 Range/Units 06:03 Sodium 137 L (140-148) mmol/L Potassium 4.9 (3.6-5.2) mmol/L Chloride 104 (100-108) mmol/L Carbon Dioxide 22 (21-32) mmol/L Anion Gap 15.9 H (5.0-14.0) mmol/L BUN 51 H (7-18) mg/dL Creatinine 1.0 (0.6-1.0) mg/dL Est Cr Clr Drug Dosing 34.01 mL/min Estimated GFR (MDRD) 53 L (>60) Glucose 147 H (74-106) mg/dL Calcium 9.0 (8.5-10.1) mg/dL Total Bilirubin 0.4 (0.2-1.0) mg/dL AST 42 H (15-37) U/L ALT 79 H (12-78) U/L Alkaline Phosphatase 29 L (46-116) U/L Total Protein 6.7 (6.4-8.2) g/dL Albumin 2.6 L (3.4-5.0) g/dL Globulin 4.1 H (2.3-3.5) g/dL Albumin/Globulin Ratio 0.6 L (1.2-2.2) Alireza Results Last 24 Hours: Microbiology 06/14/20 15:00 Aerobic Blood Culture - Preliminary Blood - Arm, Left NO GROWTH AFTER 3 DAYS Anaerobic Blood Culture - Preliminary NO GROWTH AFTER 3 DAYS 06/14/20 14:50 Aerobic Blood Culture - Preliminary Blood - Arm, Left NO GROWTH AFTER 3 DAYS Anaerobic Blood Culture - Preliminary NO GROWTH AFTER 3 DAYS Med Orders - Current: Current Medications Acetaminophen (Tylenol) 650 mg PO Q4H PRN PRN Reason: Fever Greater Than 101 Acetaminophen (Tylenol) 650 mg PO Q4H PRN PRN Reason: Pain (Mild 1-3)/fever Amlodipine Besylate (Norvasc) 10 mg PO DAILY [facility] Last Admin: 06/18/20 08:19 Dose: 10 mg Documented by: Dexamethasone (Decadron) 6 mg IVPUSH DAILY [facility] Stop: 06/23/20 09:01 Last Admin: 06/18/20 08:20 Dose: 6 mg Documented by: Docusate Sodium (Colace) 100 mg PO BID PRN PRN Reason: Constipation Enoxaparin Sodium (Lovenox) 40 mg SUBCUT Q24H [facility] Remdesivir 100 mg/ Sodium (Chloride) 100 mls @ 100 mls/hr IV Q24H [facility] Stop: 06/18/20 14:59 Last Admin: 06/17/20 14:03 Dose: 100 mls/hr Documented by: Losartan Potassium (Cozaar) 100 mg PO BEDTIME [facility] Last Admin: 06/17/20 20:40 Dose: 100 mg Documented by: Magnesium Hydroxide (Milk Of Magnesia) 30 ml PO BID PRN PRN Reason: Constipation Ondansetron HCl (Zofran Odt) 4 mg PO Q6H PRN PRN Reason: Nausea able to take PO Ondansetron HCl (Zofran) 4 mg IV Q6H PRN PRN Reason: Nausea/Vomiting Pantoprazole Sodium (Protonix) 40 mg PO ACBREAKFAST [facility] Last Admin: 06/18/20 08:20 Dose: 40 mg Documented by: Preservision Mvi ( (Ptom)) 1 each PO BID [facility] Last Admin: 06/18/20 11:36 Dose: 1 each Documented by: Triamterene/Hydrochlorothiazide (Maxzide 25-37.5 Mg) 1 each PO DAILY [facility] Last Admin: 06/18/20 08:20 Dose: 1 each Documented by: Discontinued Medications Albuterol/Ipratropium (Duoneb 3.0-0.5 Mg/3 Ml) 3 ml NEB QID PRN PRN Reason: Shortness Of Breath/wheezing Enoxaparin Sodium (Lovenox) 30 mg SUBCUT Q24H [facility] Last Admin: 06/17/20 20:38 Dose: 30 mg Documented by: Heparin Sodium (Porcine) (Heparin Sodium) 5,000 units SUBCUT Q8H [facility] Last Admin: 06/16/20 08:28 Dose: Not Given Documented by: Remdesivir 200 mg/ Sodium (Chloride) 250 mls @ 250 mls/hr IV ONETIME ONE Stop: 06/14/20 16:59 Last Admin: 06/14/20 17:46 Dose: 250 mls/hr Documented by: Losartan Potassium (Cozaar) 50 mg PO BEDTIME [facility] Multivitamins/Minerals (Thera M Plus) 1 tab PO BID [facility] Last Admin: 06/18/20 08:20 Dose: 1 tab Documented by: Losartan 100mg *Pom* 1 each PO BEDTIME [facility] Last Admin: 06/16/20 20:33 Dose: Not Given Documented by: Amlodipine 10mg *Pom (*) 1 each PO DAILY [facility] Last Admin: 06/16/20 08:29 Dose: 1 each Documented by: Sertraline HCl (Zoloft) 50 mg PO DAILY [facility] Triamterene/Hydrochlorothiazide (Maxzide 25-37.5 Mg) 1 each PO DAILY [facility] Last Admin: 06/16/20 08:29 Dose: 1 each Documented by: - Exam Quality Assessment: Supplemental Oxygen General: Alert, Oriented, Cooperative, No Acute Distress Lungs: Normal Respiratory Effort. No: Wheezing GI/Abdominal Exam: Soft, No Distention Skin: Warm, Dry Psy/Mental Status: Alert, Normal Affect Sepsis Event Note - Evaluation Sepsis Screening Result: No Definite Risk - Focused Exam Vital Signs: Vital Signs Temp Pulse Resp BP BP Pulse Ox 06/18/20 12:25 89 L 06/18/20 10:49 35.7 C L 73 18 153/60 H 94 L 06/18/20 08:19 137/60 06/18/20 07:12 97 06/18/20 07:00 35.9 C L 64 18 137/60 92 L 06/18/20 04:02 53 L 18 95 06/18/20 01:36 96 - Problem List Review Problem List Initiated/Reviewed/Updated: Yes - My Orders Last 24 Hours: My Active Orders 06/18/20 12:00 Patient's Own Medication [Ptom] 1 each PO BID 06/18/20 21:00 Enoxaparin [Lovenox] 40 mg SUBCUT Q24H 06/19/20 05:00 C-REACTIVE PROTEIN [CHEM] Timed CBC W/O DIFF,HEMOGRAM [HEME] Timed (1) COMPREHENSIVE METABOLIC PN,CMP [CHEM] Timed D-DIMER QUANTITATIVE [COAG] Timed 06/19/20 09:00 dexAMETHasone 6 mg PO DAILY - Plan Plan:: ASSESSMENT AND PLAN - COVID-19 pneumonia-complicated by acute respiratory failure with hypoxia. Onset of symptoms on June 09. Weak and fatigued. Still requiring oxygen but has been stable. -Continued dexamethasone (day 5) -Continue remdesivir (day 5) -Labs in the morning -Supplement oxygen as needed -Maintain isolation precautions Essential hypertension-blood pressure well controlled. -Continue home medications Maintenance issues - - DVT prophylaxis -enoxaparin - GI prophylaxis -not indicated - Nutrition -regular Disposition -I would anticipate discharge home after the hospital stay Eduar Maloney M.D.
[2020-06-18] MEDS: REMDESIVIR 100 MG in Sodium Chloride 0.9% 100 ML IV SCH (13:57)
[2020-06-18] MEDS: Losartan 50 MG Tab PO SCH (21:10)
[2020-06-18] MEDS: Enoxaparin 40 MG/0.4 ML Syringe SUBCUT SCH (21:10)
[2020-06-19] MEDS: [UNRECOGNIZED DRUG - OTHER] PO SCH ×2 (08:25→22:00)
[2020-06-19] MEDS: Pantoprazole 40 MG Tab.CR PO SCH (08:26)
[2020-06-19] MEDS: Hydrochlorothiazide/Triamterene 25-37.5 Tab PO SCH (08:26)
[2020-06-19] MEDS: Dexamethasone 2 MG Tab PO SCH (08:26)
[2020-06-19] MEDS: amLODIPine 5 MG Tab PO SCH (08:26)
--- NOTE | 2020-06-19 13:19 | PCM.PN ---
- General Info Date of Service: 06/19/20 Subjective Update: No acute events overnight. No significant changes in the past 24 hours. Still weak and fatigued but otherwise doing okay. Still requiring 1 L of oxygen. Tolerating current treatment plan. Functional Status: Reports: Pain Controlled, Tolerating Diet - Review of Systems General: Reports: Weakness, Fatigue. Denies: Fever - Patient Data Vitals - Most Recent: Last Vital Signs Temp 35.5 C L 06/19/20 11:28 Pulse 85 06/19/20 11:28 Resp 18 06/19/20 11:28 BP 142/63 H 06/19/20 11:28 Pulse Ox 94 L 06/19/20 12:37 Weight - Most Recent: 62.1 kg I&O - Last 24 Hours: Intake & Output 06/18/20 06/19/20 06/19/20 22:59 06:59 14:59 Intake Total 236 300 Balance 236 300 Lab Results Last 24 Hours: Laboratory Results - last 24 hr 06/19/20 06/19/20 06/19/20 Range/Units 04:40 04:40 04:40 WBC 8.0 (4.5-11.0) K/uL RBC 4.18 (3.30-5.50) M/uL Hgb 13.1 (12.0-15.0) g/dL Hct 39.3 (36.0-48.0) % MCV 94 (80-98) fL MCH 31 (27-31) pg MCHC 33 (32-36) % Plt Count 460 H (150-400) K/uL D-Dimer, Quantitative 790.15 H (0.0-500.0) ng/mL Sodium 137 L (140-148) mmol/L Potassium 5.0 (3.6-5.2) mmol/L Chloride 104 (100-108) mmol/L Carbon Dioxide 23 (21-32) mmol/L Anion Gap 15.0 H (5.0-14.0) mmol/L BUN 53 H (7-18) mg/dL Creatinine 1.1 H (0.6-1.0) mg/dL Est Cr Clr Drug Dosing 30.92 mL/min Estimated GFR (MDRD) 47 L (>60) Glucose 174 H (74-106) mg/dL Calcium 9.1 (8.5-10.1) mg/dL Total Bilirubin 0.5 (0.2-1.0) mg/dL AST 25 (15-37) U/L ALT 66 (12-78) U/L Alkaline Phosphatase 31 L (46-116) U/L C-Reactive Protein 1.73 H (0.0-0.3) mg/dL Total Protein 6.8 (6.4-8.2) g/dL Albumin 2.6 L (3.4-5.0) g/dL Globulin 4.2 H (2.3-3.5) g/dL Albumin/Globulin Ratio 0.6 L (1.2-2.2) Alireza Results Last 24 Hours: Microbiology 06/14/20 15:00 Aerobic Blood Culture - Preliminary Blood - Arm, Left NO GROWTH AFTER 4 DAYS Anaerobic Blood Culture - Preliminary NO GROWTH AFTER 4 DAYS 06/14/20 14:50 Aerobic Blood Culture - Preliminary Blood - Arm, Left NO GROWTH AFTER 4 DAYS Anaerobic Blood Culture - Preliminary NO GROWTH AFTER 4 DAYS Med Orders - Current: Current Medications Acetaminophen (Tylenol) 650 mg PO Q4H PRN PRN Reason: Fever Greater Than 101 Acetaminophen (Tylenol) 650 mg PO Q4H PRN PRN Reason: Pain (Mild 1-3)/fever Amlodipine Besylate (Norvasc) 10 mg PO DAILY [facility] Last Admin: 06/19/20 08:26 Dose: 10 mg Documented by: Dexamethasone (Dexamethasone) 6 mg PO DAILY [facility] Last Admin: 06/19/20 08:26 Dose: 6 mg Documented by: Docusate Sodium (Colace) 100 mg PO BID PRN PRN Reason: Constipation Enoxaparin Sodium (Lovenox) 40 mg SUBCUT Q24H [facility] Last Admin: 06/18/20 21:10 Dose: 40 mg Documented by: Losartan Potassium (Cozaar) 100 mg PO BEDTIME [facility] Last Admin: 06/18/20 21:10 Dose: 100 mg Documented by: Magnesium Hydroxide (Milk Of Magnesia) 30 ml PO BID PRN PRN Reason: Constipation Ondansetron HCl (Zofran Odt) 4 mg PO Q6H PRN PRN Reason: Nausea able to take PO Ondansetron HCl (Zofran) 4 mg IV Q6H PRN PRN Reason: Nausea/Vomiting Pantoprazole Sodium (Protonix) 40 mg PO ACBREAKFAST [facility] Last Admin: 06/19/20 08:26 Dose: 40 mg Documented by: Preservision Mvi ( (Ptom)) 1 each PO BID [facility] Last Admin: 06/19/20 08:25 Dose: 1 each Documented by: Triamterene/Hydrochlorothiazide (Maxzide 25-37.5 Mg) 1 each PO DAILY [facility] Last Admin: 06/19/20 08:26 Dose: 1 each Documented by: Discontinued Medications Albuterol/Ipratropium (Duoneb 3.0-0.5 Mg/3 Ml) 3 ml NEB QID PRN PRN Reason: Shortness Of Breath/wheezing Dexamethasone (Decadron) 6 mg IVPUSH DAILY [facility] Stop: 06/23/20 09:01 Last Admin: 06/18/20 08:20 Dose: 6 mg Documented by: Enoxaparin Sodium (Lovenox) 30 mg SUBCUT Q24H [facility] Last Admin: 06/17/20 20:38 Dose: 30 mg Documented by: Heparin Sodium (Porcine) (Heparin Sodium) 5,000 units SUBCUT Q8H [facility] Last Admin: 06/16/20 08:28 Dose: Not Given Documented by: Remdesivir 200 mg/ Sodium (Chloride) 250 mls @ 250 mls/hr IV ONETIME ONE Stop: 06/14/20 16:59 Last Admin: 06/14/20 17:46 Dose: 250 mls/hr Documented by: Remdesivir 100 mg/ Sodium (Chloride) 100 mls @ 100 mls/hr IV Q24H [facility] Stop: 06/18/20 14:59 Last Admin: 06/18/20 13:57 Dose: 100 mls/hr Documented by: Losartan Potassium (Cozaar) 50 mg PO BEDTIME [facility] Multivitamins/Minerals (Thera M Plus) 1 tab PO BID [facility] Last Admin: 06/18/20 08:20 Dose: 1 tab Documented by: Losartan 100mg *Pom* 1 each PO BEDTIME [facility] Last Admin: 06/16/20 20:33 Dose: Not Given Documented by: Amlodipine 10mg *Pom (*) 1 each PO DAILY [facility] Last Admin: 06/16/20 08:29 Dose: 1 each Documented by: Sertraline HCl (Zoloft) 50 mg PO DAILY [facility] Triamterene/Hydrochlorothiazide (Maxzide 25-37.5 Mg) 1 each PO DAILY [facility] Last Admin: 06/16/20 08:29 Dose: 1 each Documented by: - Exam Quality Assessment: Supplemental Oxygen General: Alert, Oriented, Cooperative, No Acute Distress Lungs: Normal Respiratory Effort. No: Wheezing GI/Abdominal Exam: Soft, No Distention Skin: Warm, Dry Psy/Mental Status: Alert, Normal Affect Sepsis Event Note - Evaluation Sepsis Screening Result: No Definite Risk - Focused Exam Vital Signs: Vital Signs Temp Pulse Resp BP BP Pulse Ox 06/19/20 12:37 94 L 06/19/20 11:28 35.5 C L 85 18 142/63 H 93 L 06/19/20 08:26 130/60 06/19/20 08:18 35.9 C L 70 16 130/60 92 L 06/19/20 07:49 92 L 06/19/20 05:50 36.6 C 71 18 120/61 92 L - Problem List Review Problem List Initiated/Reviewed/Updated: Yes - My Orders Last 24 Hours: My Active Orders 06/18/20 21:00 Enoxaparin [Lovenox] 40 mg SUBCUT Q24H 06/19/20 09:00 dexAMETHasone 6 mg PO DAILY - Plan Plan:: ASSESSMENT AND PLAN - COVID-19 pneumonia-complicated by acute respiratory failure with hypoxia. Onset of symptoms on June 09. No significant change in the past 24 hours other than a slightly smaller supplemental oxygen requirement. D-dimer and CRP are improving. -Continued dexamethasone (day 6) -Remdesivir complete -Labs every 2 to 3 days -Supplement oxygen as needed -Maintain isolation precautions Essential hypertension-blood pressure well controlled. -Continue home medications Maintenance issues - - DVT prophylaxis -enoxaparin - GI prophylaxis -not indicated - Nutrition -regular Disposition -I would anticipate discharge home after the hospital stay Eduar Maloney M.D.
[2020-06-19] MEDS: Magnesium Hydroxide 400 MG/5 ML Susp 30 ML Cup PO PRN (22:00)
[2020-06-19] MEDS: Losartan 50 MG Tab PO SCH (22:01)
[2020-06-19] MEDS: Enoxaparin 40 MG/0.4 ML Syringe SUBCUT SCH (22:01)
[2020-06-20] MEDS: Hydrochlorothiazide/Triamterene 25-37.5 Tab PO SCH (08:07)
[2020-06-20] MEDS: Pantoprazole 40 MG Tab.CR PO SCH (08:07)
[2020-06-20] MEDS: [UNRECOGNIZED DRUG - OTHER] PO SCH ×2 (08:07→21:31)
[2020-06-20] MEDS: Dexamethasone 2 MG Tab PO SCH (08:07)
[2020-06-20] MEDS: amLODIPine 5 MG Tab PO SCH (08:07)
--- NOTE | 2020-06-20 11:02 | PCM.PN ---
- General Info Date of Service: 06/20/20 Subjective Update: No acute events overnight. Vital signs have been stable. She is requiring 1/2 to 1 L of supplemental oxygen. Energy is starting to improve. Appetite is not great but seems to be slowly improving. Strength slowly improving. Patient reports today is the first day that she feels like she is starting to feel better. No complaints of abdominal pain or nausea. Occasional dry cough. Functional Status: Reports: Pain Controlled, Tolerating Diet - Review of Systems General: Reports: Weakness, Fatigue - Patient Data Vitals - Most Recent: Last Vital Signs Temp 35.9 C L 06/20/20 08:01 Pulse 73 06/20/20 08:01 Resp 18 06/20/20 08:01 BP 113/89 06/20/20 08:07 Pulse Ox 90 L 06/20/20 08:01 Weight - Most Recent: 61.4 kg I&O - Last 24 Hours: Intake & Output 06/19/20 06/20/20 06/20/20 22:59 06:59 14:59 Intake Total 1250 540 Balance 1250 540 Alireza Results Last 24 Hours: Microbiology 06/14/20 15:00 Aerobic Blood Culture - Final Blood - Arm, Left NO GROWTH AFTER 5 DAYS Anaerobic Blood Culture - Final NO GROWTH AFTER 5 DAYS 06/14/20 14:50 Aerobic Blood Culture - Final Blood - Arm, Left NO GROWTH AFTER 5 DAYS Anaerobic Blood Culture - Final NO GROWTH AFTER 5 DAYS Med Orders - Current: Current Medications Acetaminophen (Tylenol) 650 mg PO Q4H PRN PRN Reason: Fever Greater Than 101 Acetaminophen (Tylenol) 650 mg PO Q4H PRN PRN Reason: Pain (Mild 1-3)/fever Amlodipine Besylate (Norvasc) 10 mg PO DAILY [facility] Last Admin: 06/20/20 08:07 Dose: 10 mg Documented by: Dexamethasone (Dexamethasone) 6 mg PO DAILY [facility] Last Admin: 06/20/20 08:07 Dose: 6 mg Documented by: Docusate Sodium (Colace) 100 mg PO BID PRN PRN Reason: Constipation Enoxaparin Sodium (Lovenox) 40 mg SUBCUT Q24H [facility] Last Admin: 06/19/20 22:01 Dose: 40 mg Documented by: Losartan Potassium (Cozaar) 100 mg PO BEDTIME [facility] Last Admin: 06/19/20 22:01 Dose: 100 mg Documented by: Magnesium Hydroxide (Milk Of Magnesia) 30 ml PO BID PRN PRN Reason: Constipation Last Admin: 06/19/20 22:00 Dose: 30 ml Documented by: Ondansetron HCl (Zofran Odt) 4 mg PO Q6H PRN PRN Reason: Nausea able to take PO Ondansetron HCl (Zofran) 4 mg IV Q6H PRN PRN Reason: Nausea/Vomiting Pantoprazole Sodium (Protonix) 40 mg PO ACBREAKFAST [facility] Last Admin: 06/20/20 08:07 Dose: 40 mg Documented by: Preservision Mvi ( (Ptom)) 1 each PO BID [facility] Last Admin: 06/20/20 08:07 Dose: 1 each Documented by: Triamterene/Hydrochlorothiazide (Maxzide 25-37.5 Mg) 1 each PO DAILY [facility] Last Admin: 06/20/20 08:07 Dose: 1 each Documented by: Discontinued Medications Albuterol/Ipratropium (Duoneb 3.0-0.5 Mg/3 Ml) 3 ml NEB QID PRN PRN Reason: Shortness Of Breath/wheezing Dexamethasone (Decadron) 6 mg IVPUSH DAILY [facility] Stop: 06/23/20 09:01 Last Admin: 06/18/20 08:20 Dose: 6 mg Documented by: Enoxaparin Sodium (Lovenox) 30 mg SUBCUT Q24H [facility] Last Admin: 06/17/20 20:38 Dose: 30 mg Documented by: Heparin Sodium (Porcine) (Heparin Sodium) 5,000 units SUBCUT Q8H [facility] Last Admin: 06/16/20 08:28 Dose: Not Given Documented by: Remdesivir 200 mg/ Sodium (Chloride) 250 mls @ 250 mls/hr IV ONETIME ONE Stop: 06/14/20 16:59 Last Admin: 06/14/20 17:46 Dose: 250 mls/hr Documented by: Remdesivir 100 mg/ Sodium (Chloride) 100 mls @ 100 mls/hr IV Q24H [facility] Stop: 06/18/20 14:59 Last Admin: 06/18/20 13:57 Dose: 100 mls/hr Documented by: Losartan Potassium (Cozaar) 50 mg PO BEDTIME [facility] Multivitamins/Minerals (Thera M Plus) 1 tab PO BID [facility] Last Admin: 06/18/20 08:20 Dose: 1 tab Documented by: Losartan 100mg *Pom* 1 each PO BEDTIME [facility] Last Admin: 06/16/20 20:33 Dose: Not Given Documented by: Amlodipine 10mg *Pom (*) 1 each PO DAILY [facility] Last Admin: 06/16/20 08:29 Dose: 1 each Documented by: Sertraline HCl (Zoloft) 50 mg PO DAILY [facility] Triamterene/Hydrochlorothiazide (Maxzide 25-37.5 Mg) 1 each PO DAILY [facility] Last Admin: 06/16/20 08:29 Dose: 1 each Documented by: - Exam Quality Assessment: Supplemental Oxygen General: Alert, Oriented, Cooperative, No Acute Distress Lungs: Clear to Auscultation, Normal Respiratory Effort Cardiovascular: Regular Rate, Regular Rhythm GI/Abdominal Exam: Soft, No Distention Extremities: No Pedal Edema. No: Increased Warmth Skin: Warm, Dry Psy/Mental Status: Alert, Normal Affect Sepsis Event Note - Evaluation Sepsis Screening Result: No Definite Risk - Focused Exam Vital Signs: Vital Signs Temp Pulse Resp BP BP Pulse Ox 06/20/20 08:07 113/89 06/20/20 08:01 35.9 C L 73 18 133/89 90 L 06/20/20 07:29 91 L 06/20/20 04:00 35.2 C L 62 16 119/57 L 93 L 06/20/20 02:32 93 L - Problem List Review Problem List Initiated/Reviewed/Updated: Yes - Plan Plan:: ASSESSMENT AND PLAN - COVID-19 pneumonia-complicated by acute respiratory failure with hypoxia. Onset of symptoms on June 09. Slowly improving but still requiring supplemental oxygen. -Continued dexamethasone (day 7) -Remdesivir complete -Labs every 2 to 3 days -Supplement oxygen as needed -Discontinue isolation precautions Essential hypertension-blood pressure well controlled. -Continue home medications Maintenance issues - - DVT prophylaxis -enoxaparin - GI prophylaxis -not indicated - Nutrition -regular Disposition -I would anticipate discharge home after the hospital stay, hopefully in the next couple of days Eduar Maloney M.D.
[2020-06-20] MEDS: Losartan 50 MG Tab PO SCH (21:31)
[2020-06-20] MEDS: Enoxaparin 40 MG/0.4 ML Syringe SUBCUT SCH (21:31)
[2020-06-21] MEDS: Pantoprazole 40 MG Tab.CR PO SCH (08:15)
[2020-06-21] MEDS: amLODIPine 5 MG Tab PO SCH (08:15)
[2020-06-21] MEDS: Hydrochlorothiazide/Triamterene 25-37.5 Tab PO SCH (08:16)
[2020-06-21] MEDS: Dexamethasone 2 MG Tab PO SCH (08:16)
[2020-06-21] MEDS: [UNRECOGNIZED DRUG - OTHER] PO SCH ×2 (08:16→20:27)
--- NOTE | 2020-06-21 11:30 | PCM.PN ---
- General Info Date of Service: 06/21/20 Subjective Update: No acute events overnight. No fevers. She is off supplemental oxygen as of the time of my evaluation. She is currently sitting at about 90 to 92% on room air. We have not tested her oxygenation with activity yet. Still fatigued but appetite is improving and energy is slowly getting better. Functional Status: Reports: Pain Controlled, Tolerating Diet - Review of Systems General: Reports: Weakness. Denies: Fever - Patient Data Vitals - Most Recent: Last Vital Signs Temp 35.8 C L 06/21/20 10:38 Pulse 72 06/21/20 10:38 Resp 18 06/21/20 10:38 BP 120/46 L 06/21/20 10:38 Pulse Ox 90 L 06/21/20 10:38 Weight - Most Recent: 61.5 kg I&O - Last 24 Hours: Intake & Output 06/20/20 06/21/20 06/21/20 22:59 06:59 14:59 Intake Total 480 300 Balance 480 300 Med Orders - Current: Current Medications Acetaminophen (Tylenol) 650 mg PO Q4H PRN PRN Reason: Fever Greater Than 101 Acetaminophen (Tylenol) 650 mg PO Q4H PRN PRN Reason: Pain (Mild 1-3)/fever Amlodipine Besylate (Norvasc) 10 mg PO DAILY [facility] Last Admin: 06/21/20 08:15 Dose: 10 mg Documented by: Dexamethasone (Dexamethasone) 6 mg PO DAILY [facility] Last Admin: 06/21/20 08:16 Dose: 6 mg Documented by: Docusate Sodium (Colace) 100 mg PO BID PRN PRN Reason: Constipation Enoxaparin Sodium (Lovenox) 40 mg SUBCUT Q24H [facility] Last Admin: 06/20/20 21:31 Dose: 40 mg Documented by: Losartan Potassium (Cozaar) 100 mg PO BEDTIME [facility] Last Admin: 06/20/20 21:31 Dose: 100 mg Documented by: Magnesium Hydroxide (Milk Of Magnesia) 30 ml PO BID PRN PRN Reason: Constipation Last Admin: 06/19/20 22:00 Dose: 30 ml Documented by: Ondansetron HCl (Zofran Odt) 4 mg PO Q6H PRN PRN Reason: Nausea able to take PO Ondansetron HCl (Zofran) 4 mg IV Q6H PRN PRN Reason: Nausea/Vomiting Pantoprazole Sodium (Protonix) 40 mg PO ACBREAKFAST [facility] Last Admin: 06/21/20 08:15 Dose: 40 mg Documented by: Preservision Mvi ( (Ptom)) 1 each PO BID [facility] Last Admin: 06/21/20 08:16 Dose: 1 each Documented by: Triamterene/Hydrochlorothiazide (Maxzide 25-37.5 Mg) 1 each PO DAILY [facility] Last Admin: 06/21/20 08:16 Dose: 1 each Documented by: Discontinued Medications Albuterol/Ipratropium (Duoneb 3.0-0.5 Mg/3 Ml) 3 ml NEB QID PRN PRN Reason: Shortness Of Breath/wheezing Dexamethasone (Decadron) 6 mg IVPUSH DAILY [facility] Stop: 06/23/20 09:01 Last Admin: 06/18/20 08:20 Dose: 6 mg Documented by: Enoxaparin Sodium (Lovenox) 30 mg SUBCUT Q24H [facility] Last Admin: 06/17/20 20:38 Dose: 30 mg Documented by: Heparin Sodium (Porcine) (Heparin Sodium) 5,000 units SUBCUT Q8H [facility] Last Admin: 06/16/20 08:28 Dose: Not Given Documented by: Remdesivir 200 mg/ Sodium (Chloride) 250 mls @ 250 mls/hr IV ONETIME ONE Stop: 06/14/20 16:59 Last Admin: 06/14/20 17:46 Dose: 250 mls/hr Documented by: Remdesivir 100 mg/ Sodium (Chloride) 100 mls @ 100 mls/hr IV Q24H [facility] Stop: 06/18/20 14:59 Last Admin: 06/18/20 13:57 Dose: 100 mls/hr Documented by: Losartan Potassium (Cozaar) 50 mg PO BEDTIME [facility] Multivitamins/Minerals (Thera M Plus) 1 tab PO BID [facility] Last Admin: 06/18/20 08:20 Dose: 1 tab Documented by: Losartan 100mg *Pom* 1 each PO BEDTIME [facility] Last Admin: 06/16/20 20:33 Dose: Not Given Documented by: Amlodipine 10mg *Pom (*) 1 each PO DAILY [facility] Last Admin: 06/16/20 08:29 Dose: 1 each Documented by: Sertraline HCl (Zoloft) 50 mg PO DAILY [facility] Triamterene/Hydrochlorothiazide (Maxzide 25-37.5 Mg) 1 each PO DAILY [facility] Last Admin: 06/16/20 08:29 Dose: 1 each Documented by: - Exam Quality Assessment: No: Supplemental Oxygen General: Alert, Oriented, Cooperative, No Acute Distress Lungs: Normal Respiratory Effort Cardiovascular: Regular Rate, Regular Rhythm GI/Abdominal Exam: Soft, No Distention Extremities: No Pedal Edema Psy/Mental Status: Alert, Normal Affect Sepsis Event Note - Evaluation Sepsis Screening Result: No Definite Risk - Focused Exam Vital Signs: Vital Signs Temp Pulse Resp BP BP Pulse Ox Pulse Ox 06/21/20 10:38 35.8 C L 72 18 120/46 L 90 L 06/21/20 08:29 93 L 06/21/20 08:15 125/61 06/21/20 06:56 35.7 C L 58 L 18 125/61 93 L 06/21/20 04:00 35.0 C L 54 L 16 110/48 L 95 - Problem List Review Problem List Initiated/Reviewed/Updated: Yes - My Orders Last 24 Hours: My Active Orders 06/20/20 13:49 Communication Order [RC] ROUTINE Discontinue Telemetry Monitoring [Cardiac Monitoring Discontinue] [RC] Click to Edit 06/21/20 11:29 PT Evaluation and Treatment [CONS] Routine - Plan Plan:: ASSESSMENT AND PLAN - COVID-19 pneumonia-complicated by acute respiratory failure with hypoxia. Onset of symptoms on June 09. Slowly improving and off oxygen as of this morning. We are going to test her with activity to see if she becomes hypoxic. Hopefully she will be ready for discharge either later today or tomorrow. -Continued dexamethasone (day 8) -Remdesivir complete -Labs every 2 to 3 days -Supplement oxygen as needed -Discontinue isolation precautions Essential hypertension-blood pressure well controlled. -Continue home medications Maintenance issues - - DVT prophylaxis -enoxaparin - GI prophylaxis -not indicated - Nutrition -regular Disposition -I would anticipate discharge home after the hospital stay, hopefully later today or tomorrow Eduar Maloney M.D.
[2020-06-21] MEDS: Losartan 50 MG Tab PO SCH (20:27)
[2020-06-21] MEDS: Enoxaparin 40 MG/0.4 ML Syringe SUBCUT SCH (20:27)
[2020-06-21] MEDS: Magnesium Hydroxide 400 MG/5 ML Susp 30 ML Cup PO PRN (20:32)
[2020-06-22] MEDS: Pantoprazole 40 MG Tab.CR PO SCH (07:47)
[2020-06-22] MEDS: amLODIPine 5 MG Tab PO SCH (09:00)
[2020-06-22] MEDS: [UNRECOGNIZED DRUG - OTHER] PO SCH (09:03)
[2020-06-22] MEDS: Dexamethasone 2 MG Tab PO SCH (09:03)
[2020-06-22] MEDS: Hydrochlorothiazide/Triamterene 25-37.5 Tab PO SCH (09:03)
[2020-06-22 10:37] VITALS: BP 147/73; PULSE 73
--- NOTE | 2020-06-22 11:44 | PCM.DCSUM1 ---
Discharge Summary - Hospital Course Brief History: 84-year-old female with history of essential hypertension who presented with cough, shortness of breath and fever. She was admitted for management of COVID-19 pneumonia with acute respiratory failure with hypoxia. Diagnosis: Stroke: No - Discharge Data Discharge Date: 06/22/20 Discharge Disposition: Home, Self-Care 01 Condition: Good - Referral to Home Health Primary Care Physician: Zachary Hines MD - Discharge Diagnosis/Problem(s) (1) Pneumonia due to COVID-19 virus SNOMED Code(s): 540861504648623755 ICD Code: U07.1 - COVID-19; J12.82 - PNEUMONIA DUE TO CORONAVIRUS DISEASE 2018 Status: Acute Current Visit: Yes (2) Acute respiratory failure with hypoxia SNOMED Code(s): 06716098, 565905420 ICD Code: J96.01 - ACUTE RESPIRATORY FAILURE WITH HYPOXIA Status: Acute Current Visit: Yes (3) Essential hypertension SNOMED Code(s): 78452452 ICD Code: I10 - ESSENTIAL (PRIMARY) HYPERTENSION Status: Chronic Current Visit: No - Patient Summary/Data Consults: Consultations 06/14/20 14:23 Consult to Case Management/[employer]led [employer]ater [CONS] Routine Comment: Physician Instructions: Service(s) to be Consulted: Case Manage&Social Servic 06/21/20 11:29 PT Evaluation and Treatment [CONS] Routine Please Evaluate and Treat. PT Reason for Consult: Ambulation Special Instructions: oxygenation with activity? This query below is only for informational purposes and is not editable. Admission Diagnosis/Problem: Pneumonia Hospital Course: Maddison presented to the clinic with fever, shortness of breath and fatigue. She had known COVID-19 infection. She was noted to be hypoxic so she was sent to the hospital for direct admission. She was started on dexamethasone and remdesivir with her hypoxic respiratory failure in the setting of Covid infection. She was started on enoxaparin for DVT prophylaxis. Over the next several days we did see slow but steady improvement. Her inflammatory markers have trended down. She did require supplemental oxygen throughout almost the entirety of her hospital stay but now has been weaned off. Her fevers have resolved. Her vital signs have all been stable. She has completed treatment with the remdesivir. She has been on dexamethasone for more than 7 days. She still feels fatigued and somewhat weak but has been ambulating effectively in her room and in the hallway. As mentioned we have been able to wean her off supplemental oxygen. At this point I think she is safe for discharge to home. The plan is for a short steroid taper over the next 4 days. She has follow-up scheduled with her primary care. She will increase her activity as tolerated. We did review signs or symptoms that should raise concern after hospital discharge and prompt evaluation. - Patient Instructions Diet: Regular Diet as Tolerated Activity: As Tolerated Showering/Bathing: May Shower Notify Provider of: Fever Other/Special Instructions: 1. You were in the hospital for management of bilateral pneumonia caused by COVID-19 infection. Your condition has been improving with therapy provided in the hospital including remdesivir, dexamethasone as well as supplemental oxygen. You have completed adequate therapy with remdesivir. You no longer require supplemental oxygen. I do recommend a short steroid taper after hospital discharge. Please take dexamethasone 2 mg once a day in the morning for 4 days starting Wednesday morning. Dexamethasone may cause stomach upset so it is important to take this medication with food. You may increase your activity as tolerated. There are no specific limitations but you will likely experience a decrease in your stamina for the next several days to a few weeks as you recover from the viral infection. 2. Continue your usual home medications as previously prescribed. 3. Seek medical attention if you develop persistent fever greater than 101, have sudden onset of significant shortness of breath or if you develop pain and swelling in either or both of your lower legs. - Discharge Plan *PRESCRIPTION DRUG MONITORING PROGRAM REVIEWED*: Not Applicable *COPY OF PRESCRIPTION DRUG MONITORING REPORT IN PATIENT JULIO CESAR: Not Applicable Prescriptions/Med Rec: dexAMETHasone [Dexamethasone] 2 mg PO DAILY #4 tablet Home Medications: Home Meds Losartan [Cozaar] 100 mg PO BEDTIME 02/18/17 [History] Triamterene/Hydrochlorothiazid [Triamterene-HCTZ 37.5-25 MG] 1 cap PO DAILY 02/18/17 [History] amLODIPine [Norvasc] 10 mg PO DAILY 06/14/20 [History] Vit C/E/Zn/Coppr/Lutein/Zeaxan [Preservision Areds 2 Softgel] 1 cap PO BID 06/17/20 [History] dexAMETHasone [Dexamethasone] 2 mg PO DAILY #4 tablet 06/22/20 [Rx] Oxygen Therapy Mode: Room Air Patient Handouts: COVID-19, Dexamethasone tablets Referrals: Zachary Hines MD [Primary Care Provider] - 07/01/20 1:40 pm (Please arrive 15 minutes early to register for your appointment.) - Discharge Summary/Plan Comment DC Time >30 min.: Yes (35-counseling regarding Covid infection) - Patient Data Vitals - Most Recent: Last Vital Signs Temp 35.5 C L 06/22/20 10:33 Pulse 73 06/22/20 10:33 Resp 16 06/22/20 10:33 BP 147/73 H 06/22/20 10:33 Pulse Ox 91 L 06/22/20 10:33 Weight - Most Recent: 61.689 kg I&O - Last 24 hours: Intake & Output 06/21/20 06/22/20 06/22/20 22:59 06:59 14:59 Intake Total 360 480 Balance 360 480 Med Orders - Current: Current Medications Acetaminophen (Tylenol) 650 mg PO Q4H PRN PRN Reason: Fever Greater Than 101 Acetaminophen (Tylenol) 650 mg PO Q4H PRN PRN Reason: Pain (Mild 1-3)/fever Amlodipine Besylate (Norvasc) 10 mg PO DAILY [facility] Last Admin: 06/22/20 09:00 Dose: 10 mg Documented by: Dexamethasone (Dexamethasone) 6 mg PO DAILY [facility] Last Admin: 06/22/20 09:03 Dose: 6 mg Documented by: Docusate Sodium (Colace) 100 mg PO BID PRN PRN Reason: Constipation Enoxaparin Sodium (Lovenox) 40 mg SUBCUT Q24H [facility] Last Admin: 06/21/20 20:27 Dose: 40 mg Documented by: Losartan Potassium (Cozaar) 100 mg PO BEDTIME [facility] Last Admin: 06/21/20 20:27 Dose: 100 mg Documented by: Magnesium Hydroxide (Milk Of Magnesia) 30 ml PO BID PRN PRN Reason: Constipation Last Admin: 06/21/20 20:32 Dose: 30 ml Documented by: Ondansetron HCl (Zofran Odt) 4 mg PO Q6H PRN PRN Reason: Nausea able to take PO Ondansetron HCl (Zofran) 4 mg IV Q6H PRN PRN Reason: Nausea/Vomiting Pantoprazole Sodium (Protonix) 40 mg PO ACBREAKFAST [facility] Last Admin: 06/22/20 07:47 Dose: 40 mg Documented by: Preservision Mvi ( (Ptom)) 1 each PO BID [facility] Last Admin: 06/22/20 09:03 Dose: 1 each Documented by: Triamterene/Hydrochlorothiazide (Maxzide 25-37.5 Mg) 1 each PO DAILY [facility] Last Admin: 06/22/20 09:03 Dose: 1 each Documented by: Discontinued Medications Albuterol/Ipratropium (Duoneb 3.0-0.5 Mg/3 Ml) 3 ml NEB QID PRN PRN Reason: Shortness Of Breath/wheezing Dexamethasone (Decadron) 6 mg IVPUSH DAILY [facility] Stop: 06/23/20 09:01 Last Admin: 06/18/20 08:20 Dose: 6 mg Documented by: Enoxaparin Sodium (Lovenox) 30 mg SUBCUT Q24H [facility] Last Admin: 06/17/20 20:38 Dose: 30 mg Documented by: Heparin Sodium (Porcine) (Heparin Sodium) 5,000 units SUBCUT Q8H [facility] Last Admin: 06/16/20 08:28 Dose: Not Given Documented by: Remdesivir 200 mg/ Sodium (Chloride) 250 mls @ 250 mls/hr IV ONETIME ONE Stop: 06/14/20 16:59 Last Admin: 06/14/20 17:46 Dose: 250 mls/hr Documented by: Remdesivir 100 mg/ Sodium (Chloride) 100 mls @ 100 mls/hr IV Q24H [facility] Stop: 06/18/20 14:59 Last Admin: 06/18/20 13:57 Dose: 100 mls/hr Documented by: Losartan Potassium (Cozaar) 50 mg PO BEDTIME [facility] Multivitamins/Minerals (Thera M Plus) 1 tab PO BID [facility] Last Admin: 06/18/20 08:20 Dose: 1 tab Documented by: Losartan 100mg *Pom* 1 each PO BEDTIME [facility] Last Admin: 06/16/20 20:33 Dose: Not Given Documented by: Amlodipine 10mg *Pom (*) 1 each PO DAILY [facility] Last Admin: 06/16/20 08:29 Dose: 1 each Documented by: Sertraline HCl (Zoloft) 50 mg PO DAILY [facility] Triamterene/Hydrochlorothiazide (Maxzide 25-37.5 Mg) 1 each PO DAILY [facility] Last Admin: 06/16/20 08:29 Dose: 1 each Documented by: - Exam Quality Assessment: Denies: Supplemental Oxygen General: Reports: Alert, Oriented, Cooperative, No Acute Distress Lungs: Reports: Normal Respiratory Effort. Denies: Wheezing Cardiovascular: Reports: Regular Rate, Regular Rhythm Extremities: No Pedal Edema Psy/Mental Status: Reports: Alert, Normal Affect
== END 2020-06-22 12:45 | disposition home or self-care (01) | DRG 177 ==
LOC: JP.MS 08:25 → INTOOBSV 13:32 → OBSVTOIN 06-16 08:25 → JP.MS 06-20 13:52
PROVIDERS: ADMIT Family Medicine; ATTEND Internal Medicine
PROC: XW033E5 Introduction of Remdesivir Anti-infective into Peripheral Vein, Percutaneous Approach, New Technology Group 5 (ICD-10-PCS; principal; 2020-06-14)
DX: U07.1 COVID-19 (principal); J12.82 Pneumonia due to coronavirus disease 2019; H54.7 Unspecified visual loss; J96.01 Acute respiratory failure with hypoxia; I10 Essential (primary) hypertension; K21.9 Gastro-esophageal reflux disease without esophagitis; F41.9 Anxiety disorder, unspecified; F32.9 Major depressive disorder, single episode, unspecified; M54.9 Dorsalgia, unspecified; G89.29 Other chronic pain; Z85.828 Personal history of other malignant neoplasm of skin; E11.9 Type 2 diabetes mellitus without complications; Z99.81 Dependence on supplemental oxygen; Z79.899 Other long term (current) drug therapy
CPT/HCPCS: 36415 ×3; 80048 ×2; 80076 ×3; 82728 ×2; 83605; 83615; 84145 ×2; 85025 ×2; 85379; 85610; 86140 ×2; 87040 ×2; 87081; 87804 ×2; 87880; 94762 ×2; 96365; 96366; 96372 ×2; 96375; 96376; A9270 ×2; G0378 ×4; G0379; J1100 ×2; J1644 ×2; J7050; 80053; 85027; 97110-GP; 97162-GP; 97530-GP; 99219; 99225; 99231; 99232; 99239; J1650; J8540

== ENCOUNTER 2022-10-09 21:32 | Emergency (ER) | payer MEDICARE, BC ==
[2022-10-09] MEDS ORDERED: Sodium Chloride 0.9% 10 ML Syringe FLUSH PRN (22:01)
[2022-10-09] MEDS ORDERED: HYDROmorphone 0.5 MG/0.5 ML Syringe IVPUSH ONE (22:01)
[2022-10-09 22:12] LABS: BASOPHILS ABSOLUTE AUTO 0.03 K/uL (0.00-0.10); BASOPHILS PERCENT AUTO 0.1 % (0.1-1.3); HEMATOCRIT 38.2 % (34.3-46.0); IMMATURE GRAN ABSOLUTE AUTO 0.12 K/uL (0.00-0.23); IMMATURE GRAN PERCENT AUTO 0.5 % (0.0-0.7); LYMPHOCYTES ABSOLUTE AUTO 1.34 K/uL (0.8-3.3); LYMPHOCYTES PERCENT AUTO 6.1 % (11.4-47.7); MEAN CORPUSCULAR HEMOGLOBIN 31.4 pg (31.6-35.5); MEAN CORPUSCULAR VOLUME 92.3 fL (81.4-99.0); MONOCYTES ABSOLUTE AUTO 0.84 K/uL (0.20-0.90); MONOCYTES PERCENT AUTO 3.8 % (3.3-12.6); NEUTROPHILS ABSOLUTE AUTO 19.64 K/uL (1.0-7.6); NEUTROPHILS PERCENT AUTO 89.5 % (40.0-78.1); PLATELET COUNT,PLT 308 K/uL (130-375); RED BLOOD CELL COUNT 4.14 M/uL (3.77-5.24)
[2022-10-09 22:17] LABS: EOSINOPHILS ABSOLUTE AUTO 0.01 K/uL (0.00-0.40)
[2022-10-09 22:33] LABS: A/G RATIO 0.7 (1.2-2.2); ALANINE AMINOTRANSFERASE,ALT 29 U/L (12-78); ALBUMIN 3.4 g/dL (3.4-5.0); ALKALINE PHOSPHATASE 44 U/L (46-116); ASPARTATE AMNIOTRANSFERASE,AST 27 U/L (15-37); BILIRUBIN TOTAL 0.4 mg/dL (0.2-1.0); BLOOD UREA NITROGEN,BUN 29 mg/dL (7-18); CALCIUM 9.7 mg/dL (8.5-10.1); CARBON DIOXIDE,CO2 28 mmol/L (21-32); CHLORIDE,CL 98 mmol/L (100-108); ESTIMATED GFR 54 mL/min (>60); GLUCOSE RANDOM 212 mg/dL (74-106); POTASSIUM,K 3.6 mmol/L (3.6-5.2); PROTEIN TOTAL,TP 8.1 g/dL (6.4-8.2); SODIUM,NA 136 mmol/L (140-148)
[2022-10-09 22:36] LABS: ANION GAP 13.6 mmol/L (5.0-14.0)
[2022-10-10 01:16] VITALS: BP 162/79; PULSE 112
[2022-10-10] MEDS ORDERED: HYDROmorphone 0.5 MG/0.5 ML Syringe IVPUSH ONE (01:57)
== END 2022-10-10 02:11 ==
LOC: JP.ED 21:32
DX: S72.012A Unspecified intracapsular fracture of left femur, initial encounter for closed fracture (principal); I10 Essential (primary) hypertension; E11.9 Type 2 diabetes mellitus without complications; Z86.16 Personal history of COVID-19; Z79.899 Other long term (current) drug therapy; Z20.822 Contact with and (suspected) exposure to COVID-19; W19.XXXA Unspecified fall, initial encounter; Y92.009 Unspecified place in unspecified non-institutional (private) residence as the place of occurrence of the external cause
CPT/HCPCS: 36415; 73502; 80053; 85025; 96374; 96376; 99284; J1170; J3490; U0002